=== PATIENT | male | born 1930 | race Caucasian/White ===

== ENCOUNTER 2018-03-22 16:29 | Observation (INO) ==
--- NOTE | 2018-03-22 17:21 | XR ---
EXAM DATE: 03/22/2018 5:15 PM EDT AGE/SEX: 87 years / Male INDICATIONS: . Short of breath and chest pain. CLINICAL DATA: This is the patient's initial encounter. Patient reports that signs and symptoms have been present for 2 weeks and indicates a pain score of 1/10. MEDICAL/SURGICAL HISTORY: Cardiovascular disease. CABG. COMPARISON: No prior exams available for comparison. FINDINGS: PA and lateral views of the chest demonstrate the lungs to be symmetrically aerated without evidence of mass, infiltrate or effusion. The cardiomediastinal contours are unremarkable. Osseous structures are intact. 5 intact sternal wires and clips suggesting CABG. Diffuse spurring of the thoracic spine CONCLUSION: Clips and wires suggests CABG. Aorta is mildly tortuous. Lungs are grossly clear Electronically signed by: Bharath Garcia MD 03/22/2018 5:20 PM EDT
--- NOTE | 2018-03-22 17:57 | ED ---
HPI General Chief complaint: Chest Pain Stated complaint: dr mcginnis Time Seen by Provider: 03/22/18 17:28 History of Present Illness HPI narrative: 87-year-old male with a history of CABG 4, aortic valve replacement with bovine valve and hypertension presents to the emergency department for evaluation of abnormal heart rhythm. The patient states that last week he had his annual physical exam with his primary care doctor in [place] and he had a routine EKG done at that time. States that he was called by his PCP today and told that the EKG shows complete heart block and that he needed to come to the emergency department to have a pacemaker put in. The patient states that he lives half the time here in [place] and half the time in [facility]. He denies any prior history of arrhythmias. He denies any complaints. Denies any chest pain, shortness of breath, lightheadedness, dizziness, fatigue, swelling of the extremities, nausea, vomiting. No other complaints. Related Data Home Medications Medication Instructions Recorded Confirmed aspirin 325 mg PO DAILY 03/22/18 03/22/18 metoprolol tartrate 25 mg PO DAILY 03/22/18 03/22/18 Allergies Allergy/AdvReac Type Severity Reaction Status Date / Time No Known Allergies Allergy Verified 03/22/18 18:55 Review of Systems ROS: all other systems reviewed are negative [facility] Medical History Medical History CAD (coronary artery disease) (Acute) Hypertension (Acute) Surgical History Surgical History H/O aortic valve replacement (Acute) Hx of cardiac cath (Acute) S/P CABG x 4 (Acute) Family History Family History Other Family history normal Social History Social History Substance History: No History of Abuse Second Hand Smoke Exposure: No Smoking Status: Former smoker Tobacco Type: Cigarettes How Often Do You Have a Drink Containing Alcohol: 2 to 4 times a month Recent Travel in [facility] within the Last 8 Weeks: No Recent Out of Country Travel within the Last 8 Weeks: No Immunization History Tetanus Immunization: <5 Years Hx Influenza Vaccine This Season: Yes Exam Narrative Exam Narrative: GENERAL: Well-nourished and well-developed pleasant patient in no acute distress who is nontoxic appearing. SKIN: Warm and dry. HEAD: Normocephalic and atraumatic. EYES: No injection, drainage, or hyphema noted. PERRLA. EOMI. ENT: No nasal drainage noted. Oropharynx is clear. NECK: Supple and the trachea is midline. CARDIOVASCULAR: Regular rate and rhythm. RESPIRATORY: Breath sounds are equal bilaterally with no accessory muscle use, wheezing, rhonchi, or crackles. GASTROINTESTINAL: Abdomen is soft, non-tender, and nondistended. No hepatosplenomegaly. MUSCULOSKELETAL: No obvious deformities, swelling, cyanosis, or ecchymosis is present throughout the upper and lower extremities. Patient has full range of motion without any signs of neurovascular compromise. Distal pulses are 2+ throughout. NEUROLOGICAL: Awake, alert, and oriented. Normal speech and gait. Cranial nerves are grossly intact. Course Initial Documented Vital Signs Temperature 98.7 F 03/22/18 16:52 Pulse Rate 60 03/22/18 16:52 Respiratory Rate 20 03/22/18 16:52 Blood Pressure 197/90 H 03/22/18 16:52 Pulse Oximetry 96 03/22/18 16:52 Last Documented Vital Signs Temperature 97.9 F 03/24/18 10:39 Pulse Rate 58 L 03/24/18 10:39 Respiratory Rate 24 03/24/18 10:39 Blood Pressure 126/75 03/24/18 10:39 Pulse Oximetry 95 03/24/18 10:39 Medical Decision Making NEYMAR Attestation NEYMAR supervised visit: Yes Attestation: I, Dr. Jose, have reviewed the advance practice practitioner's documentation and am in agreement, met with the patient face to face, made the diagnosis, and the medical decision making was done by me. *My assessment and Findings: Patient has a heart block which does not appear to be malignant. Case was reviewed with on-call cardiology, Dr. Weiss. Patient will be admitted for ongoing monitoring with plan for interventional cardiology evaluation tomorrow. Patient is asymptomatic and pharmacologic intervention at this time is necessary despite runs of bradycardia into the 40s. MDM Narrative Medical decision making narrative: 87-year-old male presents to the emergency department for evaluation of abnormal EKG. Patient is afebrile, vital signs are stable. Physical examination is unremarkable. IV access is obtained, labs been drawn and sent. Patient is placed on cardiac telemetry and pulse oximetry monitoring. 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 Patient's heart rate has noted to drop to the low 40s while on the monitor. I called and spoke with the protective signal repairer on-call Dr. Weiss. He reviewed the patient's EKG and states that it is a right bundle branch block with left axis deviation and a first-degree AV block. He recommends d/c metoprolol as this will put him at increased risk for complete heart block. We discussed different options for the patient's care and decided to keep patient in the hospital and he will consult on him in the morning. He would like patient to be NPO at midnight in case they move forward with pacemaker. I spoke with Dr. Ortiz who agrees to accept the patient under her service for observation. Medical Screen Exam Complete: Yes Emergency Medical Condition: Yes Lab Data Result diagrams: 03/22/18 18:00 03/22/18 18:00 Lab Results 03/22/18 03/22/18 03/22/18 Range/Units 18:00 18:00 18:00 WBC 6.4 (4.0-11.0) th/mm3 RBC 4.44 L (4.50-5.90) mil/mm3 Hgb 14.5 (13.0-17.0) gm/dL Hct 42.3 (39.0-51.0) % MCV 95.4 (80.0-100.0) fL MCH 32.8 (27.0-34.0) pg MCHC 34.4 (32.0-36.0) % RDW 12.9 (11.6-17.2) % Plt Count 150 (150-450) th/mm3 MPV 9.5 (7.0-11.0) fL Neut % (Auto) 55.7 (16.0-70.0) % Lymph % (Auto) 33.2 (9.0-44.0) % [place] % (Auto) 6.5 (0.0-8.0) % Eos % (Auto) 4.0 (0.0-4.0) % Baso % (Auto) 0.6 (0.0-2.0) % Neut # (Auto) 3.6 (1.8-7.7) th/mm3 Lymph # (Auto) 2.1 (1.0-4.8) th/mm3 [place] # (Auto) 0.4 (0.0-0.9) th/mm3 Eos # (Auto) 0.3 (0.0-0.4) th/mm3 Baso # (Auto) 0.0 (0.0-0.2) th/mm3 WBC Differential . Differential Comment Auto diff final PT 10.7 (9.8-11.6) sec INR 1.1 Ratio APTT 25.9 (24.3-30.1) sec Sodium 140 (136-145) meq/L Potassium 4.0 (3.5-5.1) meq/L Chloride 104 (98-107) meq/L Carbon Dioxide 27.3 (21.0-32.0) meq/L Anion Gap 9 (5-15) meq/L BUN 17 (7-18) mg/dL Creatinine 1.06 (0.60-1.30) mg/dL Estimated GFR 66 L (>89) mL/min Random Glucose 111 H (74-106) mg/dL Calcium 9.2 (8.5-10.1) mg/dL Total Bilirubin 0.7 (0.2-1.0) mg/dL AST 13 L (15-37) U/L ALT 17 (12-78) U/L Alkaline Phosphatase 72 (45-117) U/L Troponin I 0.03 (0.02-0.05) ng/mL Total Protein 7.4 (6.4-8.2) g/dL Albumin 3.9 (3.4-5.0) g/dL Imaging Data Radiologist's impression: Chest X-Ray 03/22/18 00:00 CONCLUSION: Clips and wires suggests CABG. Aorta is mildly tortuous. Lungs are grossly clear Discharge Plan Discharge Disposition Patient Disposition: 30 Still Patient Discharge Condition Condition: Stable Discharge Details Diagnosis: Trifascicular block Physicians Team ED Provider: Kyle Jose ED Midlevel Provider: Jenny Arriaza Attending Provider: Ifeoma Fowler Other Providers: Celestino Weiss Status ED Status: Left Department Discharge Information Discharge Date/Time: 03/22/18 21:22
[2018-03-22 18:30] LABS: Baso % (Auto) 0.6 % (0.0-2.0); Eos # (Auto) 0.3 th/mm3 (0.0-0.4); Hematocrit 42.3 % (39.0-51.0); Hemoglobin 14.5 gm/dL (13.0-17.0); Lymph # (Auto) 2.1 th/mm3 (1.0-4.8); Lymph % (Auto) 33.2 % (9.0-44.0); Mean Corpuscular HGB Conc 34.4 % (32.0-36.0); Mean Corpuscular Hemoglobin 32.8 pg (27.0-34.0); Mean Corpuscular Volume 95.4 fL (80.0-100.0); Mean Platelet Volume 9.5 fL (7.0-11.0); Mono # (Auto) 0.4 th/mm3 (0.0-0.9); Mono % (Auto) 6.5 % (0.0-8.0); Neut # (Auto) 3.6 th/mm3 (1.8-7.7); Neut % (Auto) 55.7 % (16.0-70.0); Platelet Count 150 th/mm3 (150-450); Red Blood Count 4.44 mil/mm3 (4.50-5.90); Red Cell Distribution Width 12.9 % (11.6-17.2); White Blood Count 6.4 th/mm3 (4.0-11.0)
[2018-03-22 18:33] LABS: Alanine Aminotransferase 17 U/L (12-78); Albumin 3.9 g/dL (3.4-5.0); Anion Gap 9 meq/L (5-15); Aspartate Aminotransferase 13 U/L (15-37); Blood Urea Nitrogen 17 mg/dL (7-18); Calcium 9.2 mg/dL (8.5-10.1); Carbon Dioxide 27.3 meq/L (21.0-32.0); Chloride 104 meq/L (98-107); Glomerular Filtration Rate 66 mL/min (>89); Glucose,Random 111 mg/dL (74-106); Sodium 140 meq/L (136-145)
[2018-03-22 18:37] LABS: Alkaline Phosphatase 72 U/L (45-117); Total Protein 7.4 g/dL (6.4-8.2); Troponin I 0.03 ng/mL (0.02-0.05)
[2018-03-22 18:40] LABS: Activated Partial Thrombo Time 25.9 sec (24.3-30.1); INR 1.1 Ratio; Prothrombin Time 10.7 sec (9.8-11.6)
[2018-03-22] MEDS ORDERED: Acetaminophen 325 MG Tablet PO PRN (20:29)
--- NOTE | 2018-03-22 21:20 | P.HP ---
History of Present Illness Service: [facility] Primary Care Physician: UNKNOWN History of Present Illness: With past medical history significant for hypertension and coronary artery disease presents the emergency department for the evaluation of an abnormal heart rhythm. The patient reports that last week he had his annual physical exam with his primary care provider in [place] and he had a routine EKG done at that time he states the PCP office called him today and dated that the EKG showed complete heart block and he needed to come to the emergency department for further evaluation. EKG done in the emergency department showed a bifascicular block without ST segment elevation or depression. The patient denies any chest pain or shortness of breath. He states he "feels fine." No abdominal pain. No nausea/vomiting/diarrhea. No lateralizing signs/symptoms. No fever/chills. Review of Systems All other systems reviewed negative except as stated in HPI [facility] - History History Provided By: Patient, Family Member - Medical History Medical History: Medical History (Last Updated 03/22/18 @ 21:15 by Sailaja Ortiz MD) CAD (coronary artery disease) Hypertension - Surgical History Surgical History: Surgical History (Last Updated 03/22/18 @ 17:40 by Marilu Cunningham) H/O aortic valve replacement Hx of cardiac cath S/P CABG x 4 - Family History Family History: Family History (Last Updated 03/22/18 @ 21:15 by Sailaja Ortiz MD) Other Family history normal - Tobacco History Second Hand Smoke Exposure: No Tobacco Use In Past 30 Days: No Smoking Status: Former smoker - Alcohol History How Often Do You Have a Drink Containing Alcohol: 2 to 3 times a week - Substance Use History Substance History: No History of Abuse - Travel History Recent Travel in the [facility] Within the Last 8 Weeks: No Recent Travel Out of the Country Within the Last 8 Weeks: No - Immunization History Tetanus Immunization: <5 Years Hx Influenza Vaccine This Season: Yes Medications and Allergies Active Medications: Active Medications Acetaminophen (Tylenol) 650 mg PO Q4H PRN PRN Reason: Temp > 100.4 Ondansetron HCl (Zofran Inj) 4 mg IV.PUSH Q6H PRN PRN Reason: NAUSEA OR VOMITING Sodium Chloride (Ns Flush) 2 ml IV.FLUSH UNSCH PRN PRN Reason: FLUSH AFTER USING IV ACCESS Allergies Allergy/AdvReac Type Severity Reaction Status Date / Time No Known Allergies Allergy Verified 03/22/18 18:55 Home Medications Medication Instructions Recorded Confirmed Type aspirin 325 mg PO DAILY 03/22/18 03/22/18 History metoprolol tartrate 25 mg PO DAILY 03/22/18 03/22/18 History Exam Vital signs: Vital Signs 03/22/18 16:52 03/22/18 17:30 03/22/18 17:50 Temperature 98.7 F Pulse Rate 60 58 L Respiratory Rate 20 21 Blood Pressure 197/90 H 175/83 H Pulse Oximetry 96 98 96 03/22/18 18:00 Temperature Pulse Rate Respiratory Rate Blood Pressure Pulse Oximetry 96 Intake & Output 03/22/18 03/22/18 03/23/18 06:59 18:59 06:59 Weight 84.368 kg Narrative: Gen.: No acute distress Head: Normocephalic. Atraumatic. EENT: Pupils equal round and reactive to light. Nose without drainage. Airway intact. Throat without injection. Cardiovascular: Regular rate and rhythm. 3/6 murmur Respiratory: Lungs clear to auscultation bilaterally. No wheezes or rhonchi. Abdomen: Soft, nontender, nondistended. No peritoneal signs. Musculoskeletal: No gross deformities. No edema. Skin: No obvious rashes or erythema. Neuro: Sensory and motor grossly intact. Cranial nerves II through XII grossly intact. Results - Labs CBC & Chem 7: 03/22/18 18:00 03/22/18 18:00 Labs: Laboratory Results - last 24 hr 03/22/18 03/22/18 03/22/18 18:00 18:00 18:00 WBC 6.4 RBC 4.44 L Hgb 14.5 Hct 42.3 MCV 95.4 MCH 32.8 MCHC 34.4 RDW 12.9 Plt Count 150 MPV 9.5 Neut % (Auto) 55.7 Lymph % (Auto) 33.2 [place] % (Auto) 6.5 Eos % (Auto) 4.0 Baso % (Auto) 0.6 Neut # (Auto) 3.6 Lymph # (Auto) 2.1 [place] # (Auto) 0.4 Eos # (Auto) 0.3 Baso # (Auto) 0.0 WBC Differential . Differential Comment Auto diff final PT 10.7 INR 1.1 APTT 25.9 Sodium 140 Potassium 4.0 Chloride 104 Carbon Dioxide 27.3 Anion Gap 9 BUN 17 Creatinine 1.06 Estimated GFR 66 L Random Glucose 111 H Calcium 9.2 Total Bilirubin 0.7 AST 13 L ALT 17 Alkaline Phosphatase 72 Troponin I 0.03 Total Protein 7.4 Albumin 3.9 - Imaging Impressions Chest X-Ray 03/22/18 00:00 CONCLUSION: Clips and wires suggests CABG. Aorta is mildly tortuous. Lungs are grossly clear Caprini VTE Risk Assessment Caprini VTE Risk Assessment: Moderate/High Risk (score >= 2) Caprini Risk Assessment Model: Point Value = 1 Point Value = 2 Point Value = 3 Point Value = 5 Age 41-60 Minor surgery BMI > 25 kg/m2 Swollen legs Varicose veins or History of unexplained or recurrent spontaneous Oral contraceptives or hormone replacement Sepsis (< 1 month) Serious lung disease, including pneumonia (< 1 month) Abnormal pulmonary function Acute myocardial infarction Congestive heart failure (< 1 month) History of inflammatory bowel disease Medical patient at bed rest Age 61-74 Arthroscopic surgery Major open surgery (> 45 min) Laparoscopic surgery (> 45 min) Malignancy Confined to bed (> 72 hours) Immobilizing plaster cast Central venous access Age >= 75 History of VTE Family history of VTE Factor V Leiden Prothrombin [id number] Lupus anticoagulant Anticardiolipin antibodies Elevated serum homocysteine Heparin-induced thrombocytopenia Other congenital or acquired thrombophilia Stroke (< 1 month) Elective arthroplasty Hip, pelvis, or leg fracture Acute spinal cord injury (< 1 month) Prophylaxis Regimen: Total Risk Factor Score Risk Level Prophylaxis Regimen 0-1 Low Early ambulation 2 Moderate Order ONE of the following: *Sequential Compression Device (SCD) *Heparin 5000 units SQ BID 3-4 Higher Order ONE of the following medications: *Heparin 5000 units SQ TID *Enoxaparin/Lovenox 40 mg SQ daily (WT < 150 kg, CrCl > 30 mL/min) *Enoxaparin/Lovenox 30 mg SQ daily (WT < 150 kg, CrCl > 10-29 mL/min) *Enoxaparin/Lovenox 30 mg SQ BID (WT < 150 kg, CrCl > 30 mL/min) AND/OR *Sequential Compression Device (SCD) 5 or more Highest Order ONE of the following medications: *Heparin 5000 units SQ TID (Preferred with Epidurals) *Enoxaparin/Lovenox 40 mg SQ daily (WT < 150 kg, CrCl > 30 mL/min) *Enoxaparin/Lovenox 30 mg SQ daily (WT < 150 kg, CrCl > 10-29 mL/min) *Enoxaparin/Lovenox 30 mg SQ BID (WT < 150 kg, CrCl > 30 mL/min) AND *Sequential Compression Device (SCD) Assessment and Plan - Plan Assessment/plan: 1. Abnormal EKG Patient's PCP reports that he had complete heart block on EKG, records requested EKG done in the emergency department significant for bifascicular block, personally reviewed Patient will be evaluated for pacemaker placement Cardiology consulted, appreciate recommendations 2. CAD Continue aspirin 3. Hypertension Holding home metoprolol for bradycardia and heart block FEN N.p.o. Electrolytes: Monitor and replete as needed NS at 84 cc/hour Heparin
[2018-03-22] MEDS: Heparin - SQ 10,000 UNITS/ML Vial SQ SCH (22:44)
[2018-03-22] MEDS: Sod Chloride 0.9% Inj 1,000 ML IV.CONT SCH (22:44)
[2018-03-23] MEDS: Heparin - SQ 10,000 UNITS/ML Vial SQ SCH ×2 (08:11→22:13)
[2018-03-23] MEDS: Aspirin 325 MG Tablet PO SCH (08:11)
--- NOTE | 2018-03-23 09:10 | P.CONCA ---
History of Present Illness Service: [facility] cardi[facility] Consult date: 03/23/18 Requesting Physician: Sailaja Ortiz Reason for Consult: heart block Primary Care Provider: UNKNOWN Chief Complaint: sent by PCP for heart block on ECG History of Present Illness: There is a very pleasant 87-year-old gentleman with a history of CAD status post four-vessel CABG and bioprosthetic SAVR who is in his usual state of health and presented to his PCP last week for an annual physical examination. An EKG was obtained at that time. Apparently the patient was discharged and his PCP yesterday reviewed his EKG and was concerned that it displayed to complete heart block. Patient was contacted via the telephone and recommended to proceed directly to the ER. The patient is asymptomatic and feels to be in his usual state of health. He denies any chest pain, palpitations, lightheadedness, dizziness, syncope, PND, orthopnea, lower extremity edema or exercise capacity limitations. He is a fairly active 87-year-old gentleman and continues to engage in golf and activities around the house. He did report some intermittent lightheadedness but he cannot recall if it was positional or not as it has been sometime since he is experienced this. In the ER, he was noted to have an EKG revealing trifascicular block (RBBB, LAFB , first-degree AVB), and on telemetry he was noted to have intermittent Mobitz type II second-degree heart block. He is asymptomatic. Laboratories and chest x-ray were unremarkable. Review of Systems All other systems reviewed negative except as stated in HPI [facility] - History History Provided By: Patient - Medical History Medical History: Medical History (Last Updated 03/22/18 @ 21:15 by Sailaja Ortiz MD) CAD (coronary artery disease) Hypertension - Surgical History Surgical History: Surgical History (Last Updated 03/22/18 @ 17:40 by Marilu Cunningham) H/O aortic valve replacement Hx of cardiac cath S/P CABG x 4 - Family History Family History: Family History (Last Updated 03/22/18 @ 21:15 by Sailaja Ortiz MD) Other Family history normal - Tobacco History Second Hand Smoke Exposure: No Tobacco Use In Past 30 Days: No Smoking Status: Former smoker Tobacco Type: Cigarettes - Alcohol History How Often Do You Have a Drink Containing Alcohol: 2 to 4 times a month - Substance Use History Substance History: No History of Abuse - Travel History Recent Travel in the [place] Within the Last 8 Weeks: No Recent Travel Out of the Country Within the Last 8 Weeks: No - Immunization History Tetanus Immunization: <5 Years Hx Influenza Vaccine This Season: Yes Medications and Allergies Active Medications: Active Medications Acetaminophen (Tylenol) 650 mg PO Q4H PRN PRN Reason: Temp > 100.4 Aspirin (Aspirin) 325 mg PO DAILY [facility] Last Admin: 03/23/18 08:11 Dose: Not Given Chlorhexidine Gluconate (Chlorhexidine 2% Cloth) 3 pack TOPICAL PACKER DRIED BEEF [facility] Stop: 03/26/18 09:01 Heparin Sodium (Porcine) (Heparin Inj) 5,000 units SQ Q12HR [facility] Last Admin: 03/23/18 08:11 Dose: Not Given Sodium Chloride (Ns Inj) 1,000 mls @ 84 mls/hr IV.CONT .[id number] [facility] Last Infusion: 03/23/18 06:00 Dose: 84 mls/hr Vancomycin HCl 1,000 mg/ (Sodium Chloride) 250 mls @ 250 mls/hr IV.SIG PACKER DRIED BEEF [facility] Stop: 03/26/18 09:02 Mupirocin (Bactroban 2% Nasal Oint) 1 applicatio EACH NARE PACKER DRIED BEEF [facility] Stop: 03/26/18 09:01 Ondansetron HCl (Zofran Inj) 4 mg IV.PUSH Q6H PRN PRN Reason: NAUSEA OR VOMITING Povidone Iodine (Betadine 5% Antisepsis Kit) 1 applicatio EACH NARE PACKER DRIED BEEF [facility] Stop: 03/26/18 09:01 Sodium Chloride (Ns Flush) 2 ml IV.FLUSH UNSCH PRN PRN Reason: FLUSH AFTER USING IV ACCESS Last Admin: 03/22/18 22:43 Dose: 2 ml Allergies Allergy/AdvReac Type Severity Reaction Status Date / Time No Known Allergies Allergy Verified 03/22/18 18:55 Home Medications Medication Instructions Recorded Confirmed Type aspirin 325 mg PO DAILY 03/22/18 03/22/18 History metoprolol tartrate 25 mg PO DAILY 03/22/18 03/22/18 History Exam Vital signs: Vital Signs 03/22/18 16:52 03/22/18 17:30 03/22/18 17:50 Temperature 98.7 F Pulse Rate 60 58 L Respiratory Rate 20 21 Blood Pressure 197/90 H 175/83 H Pulse Oximetry 96 98 96 03/22/18 18:00 03/22/18 21:43 03/22/18 22:50 Temperature 97.6 F Pulse Rate 61 Respiratory Rate 20 Blood Pressure 180/87 H Pulse Oximetry 96 95 96 03/22/18 23:21 03/23/18 04:00 03/23/18 07:42 Temperature 98.5 F 97.5 F L 97.6 F Pulse Rate 56 L 51 L 61 Respiratory Rate 18 16 12 Blood Pressure 146/71 H 163/81 H 164/92 H Pulse Oximetry 97 91 L 93 L 03/23/18 07:54 Temperature Pulse Rate Respiratory Rate Blood Pressure Pulse Oximetry 96 Intake & Output 03/22/18 03/23/18 03/23/18 18:59 06:59 18:59 Intake Total 1044 / 1044 Output Total 600 / 600 Balance 444 / 444 Weight 84.368 kg 85.5 kg Intake: IV 684 / 684 NS Inj 1,000 ML @ 84 mls/hr IV. 684 / 684 CONT .[id number] [facility] Rx#:[id number] Oral 360 / 360 Output: Urine 600 / 600 Other: Date of Last Bowel Movement 03/22/18 # Bowel Movements 0 Weight On Admission 85.5 kg Narrative: GENERAL: Comfortable appearing elderly gentleman in no acute distress SKIN: Warm and dry. HEAD: Atraumatic. Normocephalic. EYES: Pupils equal and round. No scleral icterus. No injection or drainage. ENT: No nasal bleeding or discharge. Mucous membranes pink and moist. NECK: Trachea midline. No JVD. CARDIOVASCULAR: Regular rate and rhythm. 2/6 systolic ejection murmur appreciated in the right upper sternal border RESPIRATORY: No accessory muscle use. Clear to auscultation. Breath sounds equal bilaterally. GASTROINTESTINAL: Abdomen soft, non-tender, nondistended. MUSCULOSKELETAL: Extremities without clubbing, cyanosis, or edema. No obvious deformities. NEUROLOGICAL: Awake and alert. No obvious cranial nerve deficits. Normal speech. PSYCHIATRIC: Appropriate mood and affect; insight and judgment normal. Results 03/22/18 18:00 03/22/18 18:00 Cardiac Enzymes 03/22/18 Range/Units 18:00 AST 13 L (15-37) U/L Troponin I 0.03 (0.02-0.05) ng/mL Coagulation 03/22/18 Range/Units 18:00 PT 10.7 (9.8-11.6) sec APTT 25.9 (24.3-30.1) sec CBC 03/22/18 Range/Units 18:00 WBC 6.4 (4.0-11.0) th/mm3 RBC 4.44 L (4.50-5.90) mil/mm3 Hgb 14.5 (13.0-17.0) gm/dL Hct 42.3 (39.0-51.0) % Plt Count 150 (150-450) th/mm3 Neut # (Auto) 3.6 (1.8-7.7) th/mm3 Lymph # (Auto) 2.1 (1.0-4.8) th/mm3 [place] # (Auto) 0.4 (0.0-0.9) th/mm3 Eos # (Auto) 0.3 (0.0-0.4) th/mm3 Baso # (Auto) 0.0 (0.0-0.2) th/mm3 Comprehensive Metabolic Panel 03/22/18 Range/Units 18:00 Sodium 140 (136-145) meq/L Potassium 4.0 (3.5-5.1) meq/L Chloride 104 (98-107) meq/L Carbon Dioxide 27.3 (21.0-32.0) meq/L BUN 17 (7-18) mg/dL Creatinine 1.06 (0.60-1.30) mg/dL Calcium 9.2 (8.5-10.1) mg/dL AST 13 L (15-37) U/L ALT 17 (12-78) U/L Alkaline Phosphatase 72 (45-117) U/L Total Protein 7.4 (6.4-8.2) g/dL Albumin 3.9 (3.4-5.0) g/dL Intake and Output 03/22/18 03/23/18 03/23/18 22:59 06:59 14:59 Intake Total 1044 / 1044 Output Total 600 / 600 Balance 444 / 444 Intake: IV 684 / 684 NS Inj 1,000 ML @ 84 mls/hr IV. 684 / 684 CONT .[id number] [facility] Rx#:[id number] Oral 360 / 360 Output: Urine 600 / 600 Other: Date of Last Bowel Movement 03/22/18 03/22/18 # Bowel Movements 0 Weight 85.5 kg Weight On Admission 85.5 kg Assessment and Plan - Plan Assessment: -Asymptomatic patient with high-grade AVB, second-degree heart block with underlying trifascicular block on EKG. Patient wishes to proceed with permanent pacemaker placement following discussion of the risks, benefits and alternatives of the procedure. Will obtain a transthoracic echocardiogram to evaluate LV systolic function for type of device implant. Plan for PPM insertion today pending anesthesia availability.
[2018-03-23] MEDS ORDERED: Mupirocin 2% Nasal Oint Topical Syringe EACH NARE SCH (09:15)
[2018-03-23] MEDS ORDERED: Vancomycin Inj 1,000 MG in Sodium Chlor 0.9% Inj 250 ML IV.SIG SCH (10:00)
--- NOTE | 2018-03-23 10:51 | ECHRPT ---
Indication: HEART BLOCK CONCLUSIONS Severely dilated left ventricle. Mild concentric left ventricular hypertrophy. The left ventricular systolic function is severely reduced with an estimated ejection fraction less than 20%. The right ventricular systoilc function is moderately decreased. The left atrial size is mildly dilated. Trace mitral valve regurgitation. Bioprosthetic aortic prosthesis with low-flow, low-gradient severe . Aortic valve mean gradient is 34 mmHg. Aortic valve area is 0.52 cm. Trace aortic valve regurgitation. There is trace tricuspid valve regurgitation. There is estimated [id number] pulmonary hypertension present (65mmHg). Mild pulmonary valve regurgitation. BP: / HR: Rhythm: MEASUREMENTS (Male / Female) Normal Values Technical Quality: 2D ECHO LV Diastolic Diameter PLAX 6.5 cm 4.2 - 5.9 / 3.9 - 5.3 cm LV Systolic Diameter PLAX 6.2 cm IVS Diastolic Thickness 1.6 cm 0.6 - 1.0 / 0.6 - 0.9 cm LVPW Diastolic Thickness 0.9 cm 0.6 - 1.0 / 0.6 - 0.9 cm LV Relative Wall Thickness 0.4 RV Internal Dim ED PLAX 2.8 cm LVOT Diameter 2.0 cm LA Systolic Diameter LX 4.9 cm 3.0 - 4.0 / 2.7 - 3.8 cm DOPPLER AV Peak Velocity 360.4 cm/s AV Peak Gradient 52.0 mmHg AV Mean Gradient 30.6 mmHg AV Velocity Time Integral 86.4 cm LVOT Peak Velocity 54.9 cm/s LVOT Peak Gradient 1.2 mmHg LVOT Velocity Time Integral 14.2 cm AV Area Cont Eq vti 0.5 cm AV Area Cont Eq pk 0.5 cm Mitral E Point Velocity 73.7 cm/s Mitral A Point Velocity 116.0 cm/s Mitral E to A Ratio 0.6 TR Peak Velocity 372.0 cm/s TR Peak Gradient 55.4 mmHg Right Atrial Pressure 10.0 mmHg Pulmonary Artery Systolic Pressu 65.4 mmHg Right Ventricular Systolic Press 65.4 mmHg FINDINGS LEFT VENTRICLE Severely dilated left ventricle. Mild concentric left ventricular hypertrophy. The left ventricular systolic function is severely reduced with an estimated ejection fraction less than 20%. RIGHT VENTRICLE The right ventricular systoilc function is moderately decreased. LEFT ATRIUM The left atrial size is mildly dilated. RIGHT ATRIUM The right atrial size is normal. ATRIAL SEPTUM Normal atrial septal thickness without atrial level shunting by limited color doppler interrogation. AORTA The aortic root and proximal ascending aorta are normal in size on limited imaging. MITRAL VALVE Mitral annular calcification is present. Trace mitral valve regurgitation. AORTIC VALVE Aortic prosthesis Trace aortic valve regurgitation. Low-flow, low-gradient severe aortic stenosis. Aortic valve mean gradient is 34 mmHg. Aortic valve area is 0.52 cm. TRICUSPID VALVE There is trace tricuspid valve regurgitation. There is estimated [id number] pulmonary hypertension present (65mmHg). PULMONARY VALVE Mild pulmonary valve regurgitation. VESSELS The inferior vena cava is normal in size. PERICARDIUM No pericardial effusion. Celestino Weiss (Electronically Signed) Final Date:23 March 2018 10:51
[2018-03-23] MEDS: Sod Chloride 0.9% Inj 1,000 ML IV.CONT SCH ×2 (11:07→23:12)
--- NOTE | 2018-03-23 11:24 | P.PN ---
Subjective Interval history: Nursing denies any deterioration since last night. Patient himself has no complaints. He is a symptomatically no chest pain. Physical Exam Vital signs: Vital Signs 03/22/18 16:52 03/22/18 17:30 03/22/18 17:50 Temperature 98.7 F Pulse Rate 60 58 L Respiratory Rate 20 21 Blood Pressure 197/90 H 175/83 H Pulse Oximetry 96 98 96 03/22/18 18:00 03/22/18 21:43 03/22/18 22:50 Temperature 97.6 F Pulse Rate 61 Respiratory Rate 20 Blood Pressure 180/87 H Pulse Oximetry 96 95 96 03/22/18 23:21 03/23/18 04:00 03/23/18 07:42 Temperature 98.5 F 97.5 F L 97.6 F Pulse Rate 56 L 51 L 61 Respiratory Rate 18 16 12 Blood Pressure 146/71 H 163/81 H 164/92 H Pulse Oximetry 97 91 L 93 L 03/23/18 07:54 Temperature Pulse Rate Respiratory Rate Blood Pressure Pulse Oximetry 96 Intake & Output 03/22/18 03/23/18 03/23/18 18:59 06:59 18:59 Intake Total 1044 / 1044 400 / 400 Output Total 600 / 600 Balance 444 / 444 400 / 400 Weight 84.368 kg 85.5 kg Intake: IV 684 / 684 400 / 400 NS Inj 1,000 ML @ 84 mls/hr IV. 684 / 684 400 / 400 CONT .[id number] [facility] Rx#:[id number] Oral 360 / 360 Output: Urine 600 / 600 Other: Date of Last Bowel Movement 03/22/18 03/22/18 # Bowel Movements 0 Weight On Admission 85.5 kg Narrative: 5/6 ejection murmur Slightly bradycardic otherwise regular rhythm Clear lungs bilaterally, unlabored breathing Results - Labs CBC & Chem 7: 03/22/18 18:00 03/22/18 18:00 Laboratory Results - last 24 hr 03/22/18 03/22/18 03/22/18 18:00 18:00 18:00 WBC 6.4 RBC 4.44 L Hgb 14.5 Hct 42.3 MCV 95.4 MCH 32.8 MCHC 34.4 RDW 12.9 Plt Count 150 MPV 9.5 Neut % (Auto) 55.7 Lymph % (Auto) 33.2 Piatt % (Auto) 6.5 Eos % (Auto) 4.0 Baso % (Auto) 0.6 Neut # (Auto) 3.6 Lymph # (Auto) 2.1 Piatt # (Auto) 0.4 Eos # (Auto) 0.3 Baso # (Auto) 0.0 WBC Differential . Differential Comment Auto diff final PT 10.7 INR 1.1 APTT 25.9 Sodium 140 Potassium 4.0 Chloride 104 Carbon Dioxide 27.3 Anion Gap 9 BUN 17 Creatinine 1.06 Estimated GFR 66 L Random Glucose 111 H Calcium 9.2 Total Bilirubin 0.7 AST 13 L ALT 17 Alkaline Phosphatase 72 Troponin I 0.03 Total Protein 7.4 Albumin 3.9 - Imaging Impressions Chest X-Ray 03/22/18 00:00 CONCLUSION: Clips and wires suggests CABG. Aorta is mildly tortuous. Lungs are grossly clear Assessment and Plan - Plan Assessment/plan: 1. 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 CAD Continue aspirin 3. Hypertension Holding home metoprolol for bradycardia and heart block
--- NOTE | 2018-03-23 14:16 | ECG ---
Date Performed: 03/22/2018 Time Performed: 17:03:07 PTAGE: 87 years EKG: Sinus rhythm WITH 1ST DEGREE AV BLOCK AND VENTRICULAR PACED RHYTHM PROLONGED CORRECTED QT INTERVAL RIGHT BUNDLE B RANCH BLOCK LEFT ANTERIOR FASCICULAR BLOCK POSSIBLE LEFT VENTRICULAR HYPERTROPHY ABNORMAL ECG NO PREVIOUS TRACING DOCTOR: Alvarez Cullen Interpretating Date/Time 03/23/2018 14:15:46
[2018-03-23] MEDS: Chlorhexidine Gluconate 2% 1 Pack (2 Cloths) TOPICAL SCH (14:40)
--- NOTE | 2018-03-23 19:39 | MB ---
cc: Aaron Kunz MD DATE: 03/23/2018 REASON FOR CONSULTATION: AV block, congestive heart failure. HISTORY OF PRESENT ILLNESS: Mr. Gonzalez is an 87-year-old gentleman with coronary artery disease, coronary artery bypass grafting, high blood pressure, who was admitted due to AV block. The patient was scheduled for permanent pacemaker insertion. The case was canceled. I was consulted for evaluation and management. The chart was reviewed. The patient was evaluated. ALLERGIES: NONE. SOCIAL HISTORY: Negative for smoking and drinking. FAMILY HISTORY: Noncontributory to his current medical condition. MEDICATIONS: He is on heparin, vancomycin, Zofran. At home, he was on only 25 mg of metoprolol and aspirin. REVIEW OF SYSTEMS: The patient refers no chest pain, no chest discomfort. Some shortness of breath on minimal activity and near syncope, but no vomiting, no fever. PHYSICAL EXAMINATION: GENERAL: Alert, fully oriented, in bed. VITAL SIGNS: Blood pressure 152/87, pulse 84, respiratory rate 18. LUNGS: Ventilated. CARDIOVASCULAR: S1, S2, irregular. ABDOMEN: Obese. No mass, no bruits. EXTREMITIES: No edema. DIAGNOSTIC DATA: Electrocardiogram shows AV dissociation, right bundle branch block, junctional rhythm, diffuse ST changes. QRS around 180 milliseconds. LABORATORY DATA: Hemoglobin 14.5, white blood cells 6.4. INR 1.7. Potassium 4.0, creatinine 1.06. ASSESSMENT AND RECOMMENDATIONS: Mr. Gonzalez has shortness of breath. He has congestive heart failure, coronary artery disease, cardiomyopathy. He was admitted since yesterday. Currently, in complete atrioventricular dissociation in the monitor. Ejection fraction 20%. The patient recently evaluated by Dr. Weiss. This gentleman is going to need pacing support. Because it is a wide complex tachyarrhythmia and junctional rhythm currently, he is going to need ventricular pacing. He has heart failure and ejection fraction is 20%. A full device will be inserted in the short term and will need a biventricular pacer defibrillator for resynchronization therapy and sudden prevention. Also, tachyarrhythmia needs to be evaluated. Electrophysiology study and biventricular pacer defibrillator discussed extensively with him and his family. The risks, the nature and the benefits of the procedure were clearly stated to them, which included pneumothorax, cardiac perforation, stroke and even . The patient understood and agreed to proceed. Procedure will be scheduled. I was just consulted may be less than 2 hours ago to evaluate Mr. Gonzalez. The patient was evaluated. Apparently at the last minute, anesthesiology canceled the procedure because of unavailability. I did try to find an opportunity to contact my practice to let them know what was going on about the lack of anesthesia. At the end of the day, we decided to reschedule the case for tomorrow. If necessary, the patient can be externally paced or a temporary pacer will be inserted today. Family informed. The patient will be kept on n.p.o. after midnight with procedure in the morning. MD ROBBIN Bello/leeanne , 03:40 PM , 03:52 PM
--- NOTE | 2018-03-24 07:20 | P.PN ---
Subjective Interval history: Pt seen and examined. Vitals reviewed, stable bradycardia with HR 50-60s. BPs elevated with systolic in the 150s. Pt denies any acute symptoms. Reports he rested well overnight. Denies chest pain or palpitations. Endorses some chronic exertional dyspnea and decreased exercise tolerance but no worsening shortness of breath and none at rest. Denies abdominal pain, N/V. He is currently NPO for pacemaker/AICD placement today. He hopes to be able to go home tomorrow. The patient recently moved to [place] from [place] and he doesn't have a PCP or residential collections in the area yet. Physical Exam Vital signs: Vital Signs 03/23/18 07:42 03/23/18 07:54 03/23/18 11:49 Temperature 97.6 F 97.7 F Pulse Rate 61 64 Respiratory Rate 12 16 Blood Pressure 164/92 H 152/87 H Pulse Oximetry 93 L 96 90 L 03/23/18 16:00 03/23/18 19:42 03/23/18 19:46 Temperature 98.1 F 98.5 F Pulse Rate 53 L 68 Respiratory Rate 18 20 Blood Pressure 155/69 H 133/76 Pulse Oximetry 93 L 94 L 94 L 03/23/18 20:00 03/23/18 22:30 03/23/18 23:00 Temperature Pulse Rate 49 L 60 48 L Respiratory Rate Blood Pressure Pulse Oximetry 03/23/18 23:20 03/24/18 00:00 03/24/18 01:10 Temperature 98 F Pulse Rate 59 L 50 L 52 L Respiratory Rate 22 Blood Pressure 145/81 H Pulse Oximetry 96 03/24/18 02:00 03/24/18 02:55 03/24/18 03:00 Temperature 97.8 F Pulse Rate 56 L 62 64 Respiratory Rate 22 Blood Pressure 151/84 H Pulse Oximetry 96 03/24/18 04:00 03/24/18 05:00 03/24/18 05:42 Temperature Pulse Rate 50 L 61 56 L Respiratory Rate Blood Pressure Pulse Oximetry Intake & Output 03/23/18 03/24/18 03/24/18 18:59 06:59 18:59 Intake Total 400 / 400 480 / 480 Output Total 200 / 200 550 / 550 Balance 200 / 200 -70 / -70 Weight 84 kg Intake: IV 400 / 400 0 / 0 NS Inj 1,000 ML @ 84 mls/hr IV. 400 / 400 0 / 0 CONT .[id number] [facility] Rx#:[id number] Oral 480 / 480 Output: Urine 200 / 200 550 / 550 Other: # Voids 2 Date of Last Bowel Movement 03/22/18 03/23/18 Narrative: GENERAL: WN, WD elderly male resting in bed in NAD. SKIN: Warm and dry. HEENT: AT/NC. Pupils equal and round. MMM. NECK: Supple no tender LAD or JVD. HEART: RRR with harsh 3-4/6 OZZY. LUNGS: CTAB without wheezes or crackles. ABDOMEN: +BS, soft, NT, ND. EXTREMITIES: No LE edema. NEURO: Awake and alert. PSYCH: Appropriate mood and affect. 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 In the ER, he was noted to have an EKG revealing trifascicular block (RBBB, LAFB, first- degree AVB), and on telemetry he was noted to have intermittent Mobitz type II second-degree heart block. 1. 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 CHF - Echo demonstrates EF of 20%, likely ischemic cardiomyopathy - Start Lisinopril and spironolactone - Carvedilol initiated by cardiology - Check BMP tomorrow to monitor potassium and renal function since starting above meds - Will also need a BMP a week out 3. CAD - Continue ASA - Start Lisinopril - Start atorvastatin 4. HTN - BPs elevated - Starting Lisinopril and carvedilol - Continue to monitor and adjust meds as needed DVT prophylaxis: Heparin but for now holding for procedure Code Status: FULL Discussed Condition With: The patient Discharge Planning: Anticipate D/C tomorrow pending no complications during PPM/AICD placement and overnight
[2018-03-24] MEDS: Lisinopril 10 MG Tablet PO SCH (08:45)
[2018-03-24] MEDS: Spironolactone 25 MG Tablet PO SCH (08:45)
[2018-03-24] MEDS: Heparin - SQ 10,000 UNITS/ML Vial SQ SCH ×2 (08:46→20:24)
[2018-03-24] MEDS: Aspirin 325 MG Tablet PO SCH (08:46)
--- NOTE | 2018-03-24 08:48 | P.PNCA ---
Subjective Interval history: rested comfortably overnight. No chest pain, sob or palpitations. Currently npo for AICD/PPM procedure today. Physical Exam Vital signs: Vital Signs 03/23/18 11:49 03/23/18 16:00 03/23/18 19:42 Temperature 97.7 F 98.1 F 98.5 F Pulse Rate 64 53 L 68 Respiratory Rate 16 18 20 Blood Pressure 152/87 H 155/69 H 133/76 Pulse Oximetry 90 L 93 L 94 L 03/23/18 19:46 03/23/18 20:00 03/23/18 22:30 Temperature Pulse Rate 49 L 60 Respiratory Rate Blood Pressure Pulse Oximetry 94 L 03/23/18 23:00 03/23/18 23:20 03/24/18 00:00 Temperature 98 F Pulse Rate 48 L 59 L 50 L Respiratory Rate 22 Blood Pressure 145/81 H Pulse Oximetry 96 03/24/18 01:10 03/24/18 02:00 03/24/18 02:55 Temperature 97.8 F Pulse Rate 52 L 56 L 62 Respiratory Rate 22 Blood Pressure 151/84 H Pulse Oximetry 96 03/24/18 03:00 03/24/18 04:00 03/24/18 05:00 Temperature Pulse Rate 64 50 L 61 Respiratory Rate Blood Pressure Pulse Oximetry 03/24/18 05:42 03/24/18 07:20 Temperature 97.8 F Pulse Rate 56 L 59 L Respiratory Rate 24 Blood Pressure 157/52 H Pulse Oximetry 94 L Intake & Output 03/23/18 03/24/18 03/24/18 18:59 06:59 18:59 Intake Total 400 / 400 480 / 480 Output Total 200 / 200 550 / 550 Balance 200 / 200 -70 / -70 Weight 84 kg Intake: IV 400 / 400 0 / 0 NS Inj 1,000 ML @ 84 mls/hr IV. 400 / 400 0 / 0 CONT .[id number] [facility] Rx#:[id number] Oral 480 / 480 Output: Urine 200 / 200 550 / 550 Other: # Voids 2 Date of Last Bowel Movement 03/22/18 03/23/18 03/23/18 Narrative: GENERAL: WN, WD, resting in bed in NAD. SKIN: Warm and dry. NECK: Supple no tender LAD or JVD. HEART: regular rate and rhythm, IV/ systolic murmur at LRSB LUNGS: CTAB without wheezes or crackles. ABDOMEN: +BS, soft, NT, ND. EXTREMITIES: No LE edema. 2+ pedal pulses. NEURO: Awake and alert. Nonfocal. PSYCH: Appropriate mood and affect. Assessment and Plan - Plan Assessment: 87 yo M with CAD, CABG x 4 (2007), bioprosthetic AVR (2008), HTN, CHF and CM. 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 Echo reveals severely dilated left ventricular hypertrophy with low flow low gradient severe (mean gradient 34mmHg, BAILEY 0.52cm), EF < 20% AICD/ biventricular PPM planned for yesterday was postponed; procedure to be done today. patient is npo. cardiomyopathy- EF < 20%. presumed ischemic. no ischemic workup required while inpatient currently. needs a LRHC as part of pre-TAVR workup which can be performed electively in outpatient setting in the near future. As part of guideline directed medical therapy will initiate carvedilol 6.25mg BID, lisinopril 10mg and atorvastatin 10mg. continue asa. likely d/c planning for tomorrow. will need to establish with a car trimmer ( patient does not have [facility] insurance) for management of elective TAVR and cardiomyopathy. Recommend Dr. Trupti Amaro for outpatient management.
[2018-03-24] MEDS: Sod Chloride 0.9% Inj 1,000 ML IV.CONT SCH ×2 (08:50→20:52)
[2018-03-24] MEDS: Chlorhexidine Gluconate 2% 1 Pack (2 Cloths) TOPICAL SCH (09:00)
[2018-03-24] MEDS: Carvedilol 6.25 MG Tablet PO SCH ×2 (09:48→20:24)
[2018-03-24] MEDS ORDERED: Heparin/NS PF Inj 500 ML ONE (10:50)
[2018-03-24] MEDS ORDERED: Sod Chloride 0.9% Inj 1,000 ML IV.CONT ONE (11:40)
[2018-03-24] MEDS ORDERED: Sodium Chlor 0.9% Inj 250 ML IV.CONT ONE (11:40)
[2018-03-24] MEDS ORDERED: Isoproterenol HCl Inj 0.2 MG/ML Ampul ONE (11:44)
[2018-03-24] MEDS ORDERED: Iohexol 350 MG/ML 50 ML Vial (for EPS) IVCONTRAST ONE (11:48)
[2018-03-24] MEDS ORDERED: Lidocaine PF 1% Inj 5 ML Syringe OTHER ONE (11:50)
[2018-03-24] MEDS ORDERED: Sodium Chlor 0.9% Inj 50 ML ONE (11:54)
[2018-03-24] MEDS ORDERED: Phenylephrine/NS 1000 MCG/10ML Syringe IV.PUSH ONE (12:00)
--- NOTE | 2018-03-24 12:23 | CATHPROC ---
Patient Name: Gaurang Gonzalez Study #: [id number] Initial MD: Aaron Kunz Date of : 1930 Study Date: 03/24/2018 Cardiac Catheterization Report 03/24/2018 4:02:07 PM Financial #: [id number] 1 of 7 Patient Name: Gaurang Gonzalez Study #: [id number] Initial MD: Aaron Kunz Date of : 1930 Study Date: 03/24/2018 Entire Case Report Patient Information Patient Name Gaurang Gonzalez Date of 1930 Age 87 years Financial # [id number] Gender M AlternateID Lab Number 6 Accession # Room Number Height (in) 71.0 Height (cm) 180.3 BSA 2.06 Weight (lbs) 188.8 Weight (kg) 85.8 Patient Address/Phone Number Home Address [facility] Home Phone Number [address] [facility] [address] Study Information Study Number Scheduled Start Study Start [id number] 03/24/2018 03/24/2018 [place] [facility] Electrophysiology Study Referring Institution Admit Source Facility Department 1 Other [facility] - Testing Coordinator Physician and Clinical Staff Initial Aaron Watson Inspecting Engineer Linda Castro,SECURITY INCIDENT RESPONSE SPECIALIST TECH2 Other Anesthesia, REFINING EQUIPMENT OPERATOR Recorder Angela Boggs,RN Anayeli Mendiola RCIS TECH2 03/24/2018 4:02:07 PM Financial #: [id number] 2 of 7 Patient Name: Gaurang Gonzalez Study #: [id number] Initial MD: Aaron Kunz Date of : 1930 Study Date: 03/24/2018 Equipment Time Tunneling Machine Operator Description Size Mfg Part Number Used/Scraped [id number] 10:59 Wi3 BLANKET,WARM AIR CCL * Used *[id number] 10:59 Wi3 PACK, CCL CUSTOM * Used *[id number] 10:59 mSeller PACER INFANTE, LIMB * 2530 *[id number] Used [id number] 10:59 [employer] J[employer] MEDICAL CATHETER, JSN, QUAD FR 5 Used *[id number] 935172 10:59 [employer] MEDICAL CATHETER, JSN, QUAD FR 5 Used *[id number] 474979 10:59 [employer] MEDICAL CATHETER, JSN, QUAD FR 5 Used *[id number] 908007 12:14 [employer] J[employer] MEDICAL CATHETER, JSN, QUAD FR 5 Used *[id number] [id number] 10:59 [employer] JANET MEDICAL ELECTRODE KIT, RYAN X SURFACE * Used *[id number] 743271 12:22 [employer] MEDICAL SHEATH, EPS, FR5 FAST CATH FR 5 Used *[id number] 055120 12:22 [employer] MEDICAL SHEATH, EPS, FR5 FAST CATH FR 5 Used *3221084 125381 12:22 [employer] MEDICAL SHEATH, EPS, FR5 FAST CATH FR 5 Used *[id number] 231502 12:22 [employer] J[employer] MEDICAL SHEATH, EPS, FR6 FAST CATH FR 6 Used *[id number] [facility] PAD, ELECTROSURGICAL 10:59 * E7506 *[id number] Used SURGICAL GROUNDING (BLUE) Insurance Information Insurance Payor None Third Democrat Third Democrat Number [employer] UHCMCR MEDICARE History: Allergies Allergy Reaction No Known Allergies History: Risk Factors Hypertension Previous Heart Failure Yes Yes Prior Valve Prior CABG Surgery Yes Yes Labs 03/24/2018 4:02:07 PM Financial #: [id number] 3 of 7 Patient Name: Gaurang Gonzalez Study #: [id number] Initial MD: Aaron Knuz Date of : 1930 Study Date: 03/24/2018 Hgb (g/dl) Hct (%) RBC (MIL/MM3) WBC (l/cumm) Platelets (thousands) 11.60-17.00 35.00-51.00 4.00-5.90 4.00-11.00 150.00-450.00 14.5 42.3 4.4 6.4 150 Glucose (mg/dl) BUN (mg/dl) Creatinine (mg/dl) BUN:Creatinine (1:x) 74.00-106.00 7.00-18.00 0.50-1.30 10.00-20.00 111 17 1.1 15.5 Na (meq/l) K (meq/l) 136.00-145.00 3.50-5.10 140 4 INR (PTT:PT) 0.90-1.10 1.1 Medication Medication Total Dose (Bolus/Oral) Medication Total Dosage/Unit 1% XYLOCAINE 20 mL Medications (Bolus/Oral) Medication Time Given Dosage/Unit Administered By Reason 1% XYLOCAINE 03/24/2018 12:05:40 PM 20 mL Aaron Kunz 20 mL 1% XYLOCAINE given in lab by Aaron Kunz in Right Groin via Subcutaneous. Ordered by Vito Kunz. 03/24/2018 4:02:07 PM Financial #: [id number] 4 of 7 Patient Name: Gaurang Gonzalez Study #: [id number] Initial MD: Aaron Kunz Date of : 1930 Study Date: 03/24/2018 Initial Case Assessment Cardiovascular HR NIBP 81 145/74 Edema Present Skin color Skin None Normal Warm Dry Circulatory - Right Pulses Dorsalis Pedis 1 Scale (0,1,2,3,4,d) Circulatory - Left Pulses Dorsalis Pedis 1 Scale (0,1,2,3,4,d) Circulatory - Lower Extremities Color Lower Right Color Lower Left Normal Normal Neurological State Oriented to time-place- Alert Moves all extremities person Respiration - General Respiration Rate SpO2 (%) (B/min) 18 95 Chronological Log Time Study Chronological Log 11:23:44 Patient arrived via Bed. 11:23:45 Patient Name, D.O.B, / Armband Verified By R.N. 11:23:46 Pre-op and post- op instructions given; patient acknowledges understanding of instructions. 11:23:47 Verbal Stimulation=2 Physical Stimulation=2 Airway=2 Respiration=2 TOTAL=8. (0=absent, 1=li mited, 2=present) 11:24:15 Patient has been NPO for More than 6Hrs. 11:24:46 Consent signed by the physician and the patient and verified by the Testing Coordinator staff. 11:25:18 Skin Breakdown- none. 11:25:19 Patient Warmer Placed on the Table. 11:25:26 History and physical on the chart or being dictated. 03/24/2018 4:02:07 PM Financial #: [id number] 5 of 7 Patient Name: Gaurang Gonzalez Study #: [id number] Initial MD: Aaron Kunz Date of : 1930 Study Date: 03/24/2018 11:26:00 Disposable Defibrillator Pads Placed On Patient. 11:26:20 Fide Prominences Protected 11:30:08 Anesthesia at bedside. Assumes care of patient. 11:40:24 A # 18 IV was noted in the Antecubital (right). Grade = 0 0.9% NaCl @ KVO Assessment: Initial Case, HR=81 BPM, EKBT=338/74 mmhg, Edema=None, Color=Normal, Skin = Warm, D ry Right Pulses: Jerod Ped=1 Left Pulses: Jerod Ped=1 11:45:11 Lower Right Extremities: Color=Normal Lower Left Extremities: Color=Normal Neurological: State=Alert, Ox3, ARAUZ Respiration: Resp=18 B/min, SpO2=95 % 11:45:25 A # 20 IV was noted in the Antecubital (left). Grade = 0 0.9% NaCl @ KVO 11:45:28 Table restraints applied according to hospital policy 11:45:30 Bilateral groin prepped with 2% chlorhexidine, and draped after a 3 min. waiting time. 11:46:03 MD paged 11:46:09 MD responded 11:48:23 Anesthesiologist present for LMA insertion. Dr. Vega. 11:48:38 A sterile drape was appplied after a 3 minute prep drying time. 11:51:36 Reference ECG taken 11:54:52 MD notified again 11:54:57 MD responded 11:58:55 Reference ECG taken 12:02:33 MD arrived. Time Out. Correct patient, procedure, procedure equipment, site and side verified with physicia n present. Time 12:04:45 concurred by MD, individual staff and REFINING EQUIPMENT OPERATOR. Time Out #2 - Consents verified, patient in correct position, all results are labled and displa yed, safety precautions 12:05:36 taken, antibiotics administered. Time out concurred by MD, individual staff and REFINING EQUIPMENT OPERATOR in procedu re 12:05:40 Case Start 12:05:40 20 mL 1% XYLOCAINE given in lab by Aaron Kunz in Right Groin via Subcutaneous. Ordered b Aaron Jerez. 12:05:54 Vascular access was obtained in the Fem Vein (right). 12:06:11 Vascular access was obtained in the Fem Vein (right). 12:06:22 Vascular access was obtained in the Fem Vein (right). 12:06:53 Vascular access was obtained in the Fem Vein (right). 12:06:56 A SHEATH, EPS, FR6 FAST CATH FR 6 was advanced into the Fem Vein (right) using the Modified Seldinger technique. 12:07:11 A SHEATH, EPS, FR5 FAST CATH FR 5 was advanced into the Fem Vein (right) using the Modified Seldinger technique. 12:07:47 A SHEATH, EPS, FR5 FAST CATH FR 5 was advanced into the Fem Vein (right) using the Modified Seldinger technique. 12:07:58 A SHEATH, EPS, FR5 FAST CATH FR 5 was advanced into the Fem Vein (right) using the Modified Seldinger technique. A CATHETER, JSN, QUAD FR 5 was advanced vis Fem Vein (right) and placed in the CS. Placement wa s visually 12:11:04 confirmed under fluoroscopy. A CATHETER, JSN, QUAD FR 5 was advanced vis Fem Vein (right) and placed in the HIS. Placement w as visually 12:12:10 confirmed under fluoroscopy. 03/24/2018 4:02:07 PM Financial #: [id number] 6 of 7 Patient Name: Gaurang Gonzalez Study #: [id number] Initial MD: Aaron Kunz Date of : 1930 Study Date: 03/24/2018 A CATHETER, JSN, QUAD FR 5 was advanced vis Fem Vein (right) and placed in the HRA. Placement was visually 12:12:25 confirmed under fluoroscopy. A CATHETER, JSN, QUAD FR 5 was advanced vis Fem Vein (right) and placed in the RVA. Placement was visually 12:12:40 confirmed under fluoroscopy. 12:13:56 EP study in progress. 12:15:30 Incremental Pacing in progress. 12:19:03 Case End (Physician broke scrub) 12:19:10 Initial procedure has been completed. Beginning additional procedure. 12:19:11 NOTE: This patient is undergoing an additional procedure while still in the Cardiac Cath L ab. 12:19:11 No case complications noted. 12:19:11 EP Procedure was performed. End Study - Contrast Media Used In Study Contrast Total Opened (mL) Total Used (mL) Total Wasted (mL) Unspecified 0 0 0 End Study - Maximum Contrast Load Max Contrast Load (mL) 390.1 End Study - Radiation Exposure Fluoro Time (minutes) 1.4 End Study - Patient Disposition Complications Transferred To No Telemetry Bed 03/24/2018 4:02:07 PM Financial #: [id number]
[2018-03-24] MEDS ORDERED: Sodium Chlor 0.9% Inj 250 ML ONE (14:42)
[2018-03-24] MEDS ORDERED: fentaNYL Citrate Inj 100 MCG/2 ML Ampul ONE (15:41)
[2018-03-24] MEDS ORDERED: Heparin/NS PF Inj 1,000 ML ONE (15:44)
--- NOTE | 2018-03-24 15:51 | CATHPROC ---
Patient Name: Gaurang Gonzalez Study #: [id number] Initial MD: Aaron Kunz Date of : 1930 Study Date: 03/24/2018 Cardiac Catheterization Report 03/24/2018 3:51:33 PM Financial #: [id number] 1 of 9 Patient Name: aGurang Gonzalez Study #: [id number] Initial MD: Aaron Kunz Date of : 1930 Study Date: 03/24/2018 Entire Case Report Patient Information Patient Name Gaurang Gonzalez Date of 1930 Age 87 years Financial # [id number] Gender M AlternateID Lab Number 6 Room Number 450 Height (in) 71.0 Height (cm) 180.3 BSA 2.06 Weight (lbs) 188.1 Weight (kg) 85.5 Patient Address/Phone Number Home Address [facility] Home Phone Number [address] [facility] [place] [address] Study Information Study Number Admission Scheduled Start Study Start [id number] Mar 22 2018 7:58PM 03/24/2018 Mar 24 2018 12:27PM [place] [facility] Electrophysiology Study Admit Source Facility Department Other [facility] - Fretted Instrument Maker Hand Physician and Clinical Staff Initial Aaron Watson Lumber Tying Machine Operator Linda Castro,WINDOWS SOFTWARE DEVELOPER TECH2 Other Anesthesia, WHISKEY REGAUGER Recorder Angela Boggs,RN Litub Anayeli Zeng,BOREMATIC OPERATOR TECH2 Procedures Performed Procedure Location (Site) Vessel Name Lead Insertion Lead Revision Venogram Coronary Sinus Other Wire insertion Subclav. Vein (Lft Subclavian Vein 03/24/2018 3:51:33 PM Financial #: [id number] 2 of 9 Patient Name: Gaurang Gonzalez Study #: [id number] Initial MD: Aaron Kunz Date of : 1930 Study Date: 03/24/2018 Equipment Time Donor Recruiter Description Size Mfg Part Number Used/Scraped COPILOT VALVE, BLEEDBACK [id number] 13:38 [employer] Used CONTROL *[id number] 75428-13 13:38 [employer] WIRE, ASAHI PROWATER 180CM 180CM Used *3428237 19594-15 13:54 [employer] WIRE, ASAHI PROWATER 180CM 180CM Used *6794833 14:21 BIOTRONIK DEFIBRILLATOR, ILIVIA 7 HF-T QP [id number] Used 12:59 BIOTRONIK LEAD, PLEXA PRO-MRI SD 65/18 65 [id number] Used 13:10 BIOTRONIK LEAD, SOLIA 60 53 PRO MRI * 708521 Used DERMABOND, ADHESIVE SKIN DHVM12 12:29 CORDIS/PACER * Used GLUE MINI *0639567 ABR3155 12:29 Easy Ice BLANKET,WARM AIR CCL * Used *0938637 TP-1103 12:29 Easy Ice SUTURE, STRIP PLUS 1/2" * Used *9541341 12:29 MEDLINE PACER INFANTE, LIMB * 2530 *0452403 Used [id number] 12:29 MEDLINE PACER PACK, PACER CUSTOM * Used *8636211 12:30 [employer] PACER SAFE SHEATH, FR7, 13CM FR 7 CLS-1007 Used 12:31 [employer] PACER SAFE SHEATH, FR8, 13CM FR 8 CLS-1008 Used 12:31 [employer] PACER SAFE SHEATH, FR9, 13CM FR 9 CLS-1009 Used 12:46 Needle Sponge Count 2 22 Used 12:46 Needle Sponge Count 20 200 Used 12:46 Needle Sponge Count 6 6 Used 13:18 NYCOMED OMNIPAQUE, 350 MG, 50ML 50ML [id number] Used SUTURE, 0 ETHIBOND [CT1] (CX21D), 8pk SUTURE, 2-0 VICRYL [CT1] (YKJ594A) SUTURE, 2-0 VICRYL [CT1] (PRX855B) 13:16 [employer] JANET MEDICAL LIVEWIRE, QUAD, LRG SWEEP FR 6 949859 Used [place] PAD, ELECTROSURGICAL 12:29 * E7507 *2697861 Used SURGICAL GROUNDING ORANGE LEAD, ATTAIN PERFORMA 13:46 VITATRON MEDTRONIC 88CM 4398-88CM Used STRAIGHT, 88CM 5923-3475 12:29 ZOLL MEDICAL ANITRA. / * Used *99321 03/24/2018 3:51:33 PM Financial #: [id number] 3 of 9 Patient Name: Gaurang Gonzalez Study #: [id number] Initial MD: Aaron Kunz Date of : 1930 Study Date: 03/24/2018 Equipment Model, Serial, Lot Number and Expiration Data Description Model Number Serial Number Lot Number Expiration Date DEFIBRILLATOR, ILIVIA 7 HF-T QP [id number] 12-07-2018 LEAD, ATTAIN PERFORMA 4398-88 [id number] 01-02-2020 STRAIGHT, 88CM LEAD, PLEXA PRO-MRI SD 65/18 [id number] 01-07-2020 LEAD, SOLIA 60 53 PRO MRI [id number] 08-09-2019 Insurance Information Insurance Payor None Third Alliance Party Third Alliance Party Number [employer] UHCMCR MEDICARE History: Allergies Allergy Reaction No Known Allergies History: Risk Factors Hypertension Dyslipidemia Yes Yes Prior Valve Prior CABG Surgery Yes Yes Labs Hgb (g/dl) Hct (%) RBC (MIL/MM3) WBC (l/cumm) Platelets (thousands) 11.60-17.00 35.00-51.00 4.00-5.90 4.00-11.00 150.00-450.00 14.5 42.3 4.4 6.4 150 Glucose (mg/dl) BUN (mg/dl) Creatinine (mg/dl) BUN:Creatinine (1:x) 74.00-106.00 7.00-18.00 0.50-1.30 10.00-20.00 111 17 1.1 15.5 INR (PTT:PT) 0.90-1.10 1.1 Medication 03/24/2018 3:51:33 PM Financial #: [id number] 4 of 9 Patient Name: Gaurang Gonzalez Study #: [id number] Initial MD: Aaron Kunz Date of : 1930 Study Date: 8 Medication Total Dose (Bolus/Oral) Medication Total Dosage/Unit 2% XYLOCAINE 40 mL Medications (Bolus/Oral) Medication Time Given Dosage/Unit Administered By Reason 2% XYLOCAINE 03/24/2018 12:50:57 PM 40 mL Aaron Kunz 40 mL 2% XYLOCAINE given in lab by Aaron Kunz in Left shoulder via Subcutaneous. Ordered by Aaron Kunz. Medication (Drip) Medication Time Given Dosage/Unit Concentration/Unit Diluent (ml) Solution ANCEF 03/24/2018 11:59:00 AM 2 g 2 g ANCEF given in lab by Anesthesia, WHISKEY REGAUGER via Peripheral IV. Ordered by Hanscy. Ze Reason: As pe r physicians verbal order. VANCOMYCIN DRIP 03/24/2018 12:01:00 PM 1 g 1 g VANCOMYCIN DRIP given in lab by Anesthesia, WHISKEY REGAUGER via Peripheral IV. Ordered by Aaron Kunz. [place] son: As per physicians verbal order. Final Case Assessment Cardiovascular HR NIBP 74 119/69 Edema Present Skin color Skin None Normal Warm Dry Circulatory - Right Pulses Dorsalis Pedis 1 Scale (0,1,2,3,4,d) Circulatory - Left Pulses Dorsalis Pedis 1 Scale (0,1,2,3,4,d) Circulatory - Lower Extremities Color Lower Right Color Lower Left Normal Normal Neurological State Drowsy Moves all extremities Respiration - General Respiration Rate SpO2 (%) O2 (lpm) (B/min) 18 99 4 03/24/2018 3:51:33 PM Financial #: [id number] 5 of 9 Patient Name: Garuang Gonzalez Study #: [id number] Initial MD: Aaron Kunz Date of : 1930 Study Date: 03/24/2018 Chronological Log Time Study Chronological Log 2 g ANCEF given in lab by Anesthesia, WHISKEY REGAUGER via Peripheral IV. Ordered by Aaron Kunz. Reason: As per physicians 11:59:00 verbal order. 1 g VANCOMYCIN DRIP given in lab by Anesthesia, WHISKEY REGAUGER via Peripheral IV. Ordered by Zane Kunz Reason: As per 12:01:00 physicians verbal order. 12:19:44 NOTE: This patient is undergoing an additional procedure while still in the Cardiac Cath La b. 12:19:44 Anesthesia remains at bedside. Continues to assume care of patient. 12:19:45 Initial procedure has been completed. Beginning additional procedure. 12:19:45 Biotronik rep present at bedside for case. Jesus 12:19:46 Bovie ground pad applied to: left thigh 12:21:55 2% CHLORHEXIDINE GLUCONATE WASH AND NASAL SWIPE DONE PRIOR TO PROCEDURE. 12:23:25 Bilateral Upper Chest Prepped Times Two. 12:33:02 Reference ECG taken 12:34:15 A sterile drape was applied after a 5minute prep drying time. First Sponge And Instrument Count Done by Anayeli Zeng RCIS TECH2. 12:34:19 Hypo's: 6, Sponges: 20, Bovie/scratch: 2 Sutures: 10, Blades: 1, Instruments: 26, Syveck Patches: 0 verified by PF All Catheters except CS quad cath were removed. Sheaths left in place with heparinized saline l tod attached to each of 12:40:30 the other 3 lines. 12:50:57 40 mL 2% XYLOCAINE given in lab by Aaron Kunz in Left shoulder via Subcutaneous. Ordered by Aaron Kunz. 12:53:42 Vascular access was obtained in the Subclav. Vein (Lft. 12:53:45 Wire inserted 12:54:13 Vascular access was obtained in the Subclav. Vein (Lft. 12:54:19 Wire inserted 12:54:36 Vascular access was obtained in the Subclav. Vein (Lft. 12:54:40 Wire inserted 12:54:46 Surgical Incision Made. 12:55:40 A pocket was created at the Lt. upper chest. 12:57:32 A SAFE SHEATH, FR8, 13CM FR 8 was advanced into the Subclav. Vein (Lft using the Modified S eldinger technique. 12:57:33 Wire out 12:57:48 A LEAD, PLEXA PRO-MRI SD 65/18 65 was inserted and positioned in the CS/LV. 12:59:09 Lead placement verified under fluoroscopy 12:59:26 The CS/LV lead impedance and threshold is being tested. 13:00:09 The CS/LV Lead Was Revised. 13:00:23 Lead placement verified under fluoroscopy 13:04:49 The CS/LV lead impedance and threshold is being tested. 13:05:47 The CS/LV lead was sutured to the fascia. 13:07:29 A SAFE SHEATH, FR7, 13CM FR 7 was advanced into the Subclav. Vein (Lft using the Modified S eldinger technique. 03/24/2018 3:51:33 PM Financial #: [id number] 6 of 9 Patient Name: Gaurang Gonzalez Study #: [id number] Initial MD: Aaron Kunz Date of : 1930 Study Date: 03/24/2018 13:07:53 Wire out 13:08:18 A LEAD, SOLIA 60 53 PRO MRI * was inserted and positioned in the RV. 13:08:51 Lead placement verified under fluoroscopy 13:09:04 The RV lead impedance and threshold being tested. 13:09:35 The RV lead was sutured to the fascia. 13:12:11 A SAFE SHEATH, FR9, 13CM FR 9 was advanced into the Subclav. Vein (Lft using the Modified S eldinger technique. Wire out 13:12:13 A LIVEWIRE, QUAD, LRG SWEEP FR 6 was advanced vis Subclav. Vein (Lft and placed in the CS. Plac ement was 13:16:53 visually confirmed under fluoroscopy. 13:17:31 The Coronary Sinus was manually injected with 30 cc's of contrast. OMNIPAQUE, 350 MG, 50ML 50ML used. 13:29:10 A smaller cath guide system was inserted to cross CS branch 13:39:22 Unable to pass catheter across CS. 13:39:32 A WIRE, ASAHI PROWATER 180CM 180CM was inserted via Subclav. Vein (Lft. 13:48:09 A smaller cath guide was now inserted into CS branch over the wire. 13:48:11 Wire out. 13:48:58 Lead placement verified under fluoroscopy 13:49:55 The CS/LV lead impedance and threshold is being tested. 13:52:21 Lead placement verified again under fluoroscopy and has migrated so was removed. 13:53:01 A WIRE, ASAHI PROWATER 180CM 180CM was inserted via Subclav. Vein (Lft. 13:53:07 The CS/LV Lead Was Revised. 13:54:09 A smaller cath guide was reinserted over the wire. 14:05:13 Continuing to reposition lead with EP guidance. 14:14:03 Wire out. 14:14:23 A LEAD, ATTAIN PERFORMA STRAIGHT, 88CM 88CM was inserted and positioned in the CS/LV. 14:14:30 Lead placement verified under fluoroscopy 14:17:45 The CS/LV lead impedance and threshold is being tested. 14:18:31 The CS/LV Lead Was Revised. 14:19:40 Lead placement verified under fluoroscopy 14:19:49 The CS/LV lead impedance and threshold is being tested. 14:21:18 The CS/LV lead was sutured to the fascia. 14:27:03 A DEFIBRILLATOR, ILIVIA 7 HF-T QP was connected and placed in the pocket. 14:27:29 Pocket flushed with antibiotic solution 14:28:58 Device settings being tested and adjusted by FriendsEATronik rep. 14:30:38 The pocket is being closed. Second Sponge And Instrument Count Done by Anayeli Zeng, BOREMATIC OPERATOR TECH2. 14:30:56 Hypo's: 6, Sponges: 20, Bovie/scratch: 2 Sutures: 11, Blades: 1, Instruments: ~INSTRU~, Syveck Patches: 0 verified by PF 14:35:15 Holding Area notified of successful intervention. 03/24/2018 3:51:33 PM Financial #: [id number] Patient Name: Gaurang Gonzalez Study #: [id number] Initial MD: Aaron Kunz Date of : 1930 Study Date: 03/24/2018 14:35:16 Bedside Report will be given. 14:35:18 Implantable Device card placed in patient's chart. 14:35:20 PACU called. Spoke to Ramya. Post implant fluoro image to verify no lead migration taken. Lead has migrated. Prepping to go back in for revision, 14:39:57 pocket closure aborted and reopened. 14:41:28 Pocket reopened for CS/LV lead revision. 14:46:39 CIC called to deliver condition report to family. 14:49:59 The CS/LV Lead Was Revised. 14:53:46 Lead placement verified under fluoroscopy 14:54:44 The CS/LV lead impedance and threshold is being tested. 14:56:16 The CS/LV lead was sutured to the fascia. 14:56:35 The pocket is being closed again. Third Sponge And Instrument Count Done by Anayeli Zeng, BOREMATIC OPERATOR TECH2. 14:57:20 Hypo's: 6, Sponges: 20, Bovie/scratch: 2 Sutures: 21, Blades: 1, Instruments: ~INSTRU~, Syveck Patches: 0 verified by PF 15:04:07 Implant Procedure was performed. 15:04:16 A Bivent ICD Implant . (Dual) 15:06:36 Bedside Report will be given. 15:08:45 The pocket was closed. 15:08:46 Case End (Physician broke scrub) Final Sponge And Instrument Count Done by Anayeli Zeng RCIS TECH2. 15:09:22 Hypo's: 6, Sponges: 20, Bovie/scratch: 2 Sutures: 21, Blades: 1, Instruments: 26, Syveck Patches: 0 verified by PF 15:13:01 Steri-strips and a sterile dressing applied to site. 15:13:22 No case complications noted. 15:13:30 Cine recording checked. 15:14:34 Catheter(s) removed without difficulty 15:14:39 Sheaths removed; pressure applied to access site. PF 15:17:00 LMA was removed by anesthesia and supplemental oxygen was applied by SFM. 15:18:10 Defibrillator and ground pads removed. Skin intact. Assessment: Final Case, HR=74 BPM, CLBZ=119/69 mmhg, Edema=None, Color=Normal, Skin = Warm, Dry Right Pulses: Jerod Ped=1 Left Pulses: Jerod Ped=1 15:18:38 Lower Right Extremities: Color=Normal Lower Left Extremities: Color=Normal Neurological: State=Drowsy, ARAUZ Respiration: Resp=18 B/min, SpO2=99 %, O2=4 lpm 15:19:49 Sterile dressing applied to site rt groin site. 15:20:22 A sling was placed on the affected arm. 15:20:36 Patient moved to stretcher Pt transported to PACU on portable oxygen and monitors with WHISKEY REGAUGER and tech accompanying him. Pt left in stable 15:27:35 condition. 03/24/2018 3:51:33 PM Financial #: [id number] 8 of 9 Patient Name: Gaurang Gonzalez Study #: [id number] Initial MD: Aaron Kunz Date of : 1930 Study Date: 03/24/2018 End Study - Contrast Media Used In Study Contrast Total Opened (mL) Total Used (mL) Total Wasted (mL) Omnipaque 50 30 20 End Study - Maximum Contrast Load Max Contrast Load (mL) 388.6 End Study - Radiation Exposure Fluoro Time (minutes) 40.7 End Study - Patient Disposition Complications Transferred To Interventional Outcome No Telemetry Bed successful 03/24/2018 3:51:33 PM Financial #: [id number] [phone]
--- NOTE | 2018-03-24 16:20 | XR ---
EXAM DATE: 03/24/2018 4:12 PM EDT AGE/SEX: 87 years / Male INDICATIONS: Post pacemaker. CLINICAL DATA: This is the patient's subsequent encounter. Patient reports that signs and symptoms h ave been present for 2 days and indicates a pain score of 0/10. MEDICAL/SURGICAL HISTORY: Cardiovascular disease. CABG. COMPARISON: [facility] – [place], CHEST 2V PA&LAT, 03/22/2018. . FINDINGS: 2 portable frontal views of the chest show mild cardiomegaly. Motion degrades the study limiting the evaluation of the pulmonary vasculature. No infiltrate or effusion is seen. Patient device and median sternotomy wires are observed. CONCLUSION: Cardiomegaly without appreciable pulmonary vascular engorgement. Pulmonary vessels are limited in the ir evaluation due to breathing motion artifact. Electronically signed by: Chau Noel MD 03/24/2018 4:19 PM EDT
--- NOTE | 2018-03-24 19:58 | MP ---
cc: Aaron Kunz MD DATE OF OPERATION: 03/24/2018 PROCEDURE PERFORMED: Biventricular pacer defibrillator insertion, repolarization of left ventricular lead, very complex case. INDICATIONS FOR PROCEDURE: Mr. Gonzalez is an 87-year-old gentleman with coronary artery disease, congestive heart failure, cardiomyopathy, ejection fraction 20%, defibrillator, ventricular tachycardia on electrophysiology study who will undergo biventricular pacer defibrillator insertion for sudden prevention and resynchronization therapy. The patient has complete AV block. The risks, the nature and the benefits of the procedure were clearly stated to him. Risks included pneumothorax, cardiac perforation, stroke, need for open heart surgery and even . The patient understood and agreed to proceed. DESCRIPTION OF PROCEDURE: As written informed consent was obtained prior to the electrophysiology study, the patient was kept on the table where he was prepped and draped in the usual sterile fashion. Conscious sedation was initiated and maintained throughout the procedure by the anesthesiologist. Once sedation was verified, the left infraclavicular area was anesthetized with 2% Xylocaine. Using a modified Seldinger technique, the left subclavian vein was cannulated on 2 occasions and 2 guidewires were advanced. Then, using a #11 blade scalpel, a 3 cm incision was made 2 fingerbreadths below the left clavicle. This incision was taken down to the fascial layers using Bovie cautery and blunt dissection. In the inferomedial direction, a device pocket was dissected and then the wires were dissected into the pocket. A 2-0 Vicryl suture was placed around the wires to prevent back bleeding. At this point, over the lateral wire and the 7 Wolof dilator, an introducer was advanced. As the dilator and wire were removed, an active fixation right ventricular pacing and sensing defibrillator lead was advanced. After adequate pacing and sensing thresholds were obtained, the lead was secured in the pocket using #2 Ethibond suture. Then, over the medial wire, a 7 Wolof dilator and introducer were advanced. As the dilator and wire were removed, an active fixation right atrial pacing and sensing lead was advanced. After adequate pacing and sensing thresholds were obtained, the lead was secured in the pocket using #2 Ethibond suture. Then, over the remaining wire a 9 Wolof dilator and introducer were advanced. As the dilator and wire were removed, a CS cannulation sheath was advanced. Through the sheath, a quadripolar steerable catheter was advanced. After multiple attempts, the coronary sinus was cannulated. CS venography showed the lateral branch with a stiff angle and the posterolateral branch. In the rest, there was a lot of disease in all those branches. After multiple attempts using a subselector, the lateral branch was cannulated. The lead was advanced over the wire. After adequate pacing and sensing thresholds were obtained, the peel-away introducer was removed and the cutter introducer was removed. At that point in time, I did realize the lead dislodged. I did re-attempt cannulation of the CS. CS was recannulated after multiple attempts. At that point, I did a focus on the anterolateral branch. The wire was advanced over the bridge and the lead was advanced. After adequate pacing and sensing thresholds were obtained, the peel-away introducer was removed and the cutter introducer was removed and the lead was secured in the pocket using #2 Ethibond suture. At that point, the pocket was copiously irrigated with antibiotic solution. The leads then were connected to the generator and placed into the pocket. I did proceed with closure. The deep fascial layer was approximated using #2-0 Vicryl suture in a continuous fashion. The subcutaneous layer was reapproximated using #2-0 Vicryl suture in a continuous fashion. The subcuticular layer was approximated using #2-0 Vicryl suture in a continuous fashion. Adequate sensing of the LV lead was not seen and there was poor capture. Fluoroscopy showed lead dislodgement. I did reopen the pocket. The hybrid stylet from [employer] was advanced. After multiple manipulations, I did advance the lead into the anterolateral branch. After adequate pacing and sensing thresholds were obtained, the lead was secured in pocket using #2 Ethibond suture. Then, I did proceed with closing of the pocket. The deep fascial layer was approximated using #2-0 Vicryl suture in a continuous fashion. The subcutaneous layer was approximated using #2-0 Vicryl suture in a continuous fashion. The subcuticular layer was approximated using #2-0 Vicryl suture in continuous fashion. Dermabond adhesive was applied to the wound, followed by a sterile pressure dressing. There was no complication. It was a very difficult case. Blood loss was minimal. IMPLANTED HARDWARE: The implanted biventricular pacer defibrillator was a Biotronik model #144562, serial #[id number]. The right atrial pacing and sensing lead was a Biotronik model #652141, serial #[id number]. The right ventricular pacing and sensing lead was a Biotronik model #594897, serial #[id number]. The left ventricular pacing and sensing lead was a Medtronic model #4398-88, serial #[id number]. THRESHOLDS: The right atrial pacing threshold in bipolar mode was 1.5 volts at 0.4 millisecond, lead impedance 770 ohms, P wave at 2.2 millivolts. The right ventricle pacing threshold in bipolar mode was 0.4 volts at 0.4 milliseconds, lead impedance 710 ohms, R wave at 8 millivolts. The left ventricular pacing threshold in bipolar mode was 1.7 volts at 1 millisecond, lead impedance 795 ohms. SETTINGS: The device set in DDD60, upper rate limit 120 beats per minute. AV delay paced at 160 and sensed at 140. LV first by 40 milliseconds. Defibrillator portion for 2 zones, 1 zone for ventricular tachycardia between 160-240 beats per minute. Initial therapy consists of 1 burst of ATP 1 ramp, 81%, 10 pause, 10 millisecond decremental, followed by 20, then 30 and a second shock at 40 joule defibrillatory shock. Second zone for ventricular fibrillation above 240 beats per minute, first therapy at 30 and a subsequent shock at 40 joule defibrillatory shock. CONCLUSION: Successful biventricular pacer defibrillator insertion. RECOMMENDATIONS: The patient is going to be transferred to the telemetry unit. He will be observed and can be discharged home when stable or whenever it is okay with the managing team. MD ROBBIN Bello/leeanne , 03:11 PM , 03:25 PM
[2018-03-24] MEDS ORDERED: ceFAZolin 2 GM Premix Inj 2 GM/50 ML PIGGYBACK IV.SIG SCH (20:00)
[2018-03-24] MEDS: ceFAZolin 2 GM Premix Inj 2 GM/100 ML BAG IV.SIG SCH (20:24)
--- NOTE | 2018-03-24 20:32 | MA ---
cc: Aaron Knuz MD DATE: 03/17/2018 PROCEDURE PERFORMED: Electrophysiology study and CS cannulation. INDICATIONS: An 87-year-old gentleman with coronary artery disease, congestive heart failure, cardiomyopathy who will undergo an electrophysiology study. The risks, the nature and the benefits of the procedure were clearly stated to him. The risks included pneumothorax, cardiac perforation, stroke, need for open heart surgery and even . The patient understood and agreed to proceed. DESCRIPTION OF PROCEDURE: After written informed consent was obtained, the patient was brought to the EP lab where he was prepped and draped in the usual sterile fashion. Conscious sedation was initiated and maintained throughout the procedure by the anesthesiologist. Once sedation was verified, the right inguinal area was anesthetized with 2% Xylocaine. Using a modified Seldinger technique, the right femoral vein was cannulated on 4 occasions and 4 guidewires were advanced. Over the wires, three 5 and a 6-[place] Hemaquets were advanced. Then, under fluoroscopic guidance, through the 5 and 6 [place] Hemaquets, four 5 [place] Porfirio curved quadripolar electrophysiology catheters were advanced and placed at the His, right atrium, coronary sinus and right ventricle apex. Basic interval was measured. Entry was prolonged. Then, atrial pacing protocol was performed. Wenckebach of the node could not be reached. The patient had complete AV dissociation on and off. Then, ventricular pacing protocol was performed. During ventricular pacing protocol, ventricular tachycardia was induced. It was pace terminated. At that point, the procedure was complete. All catheters were removed. The patient tolerated the procedure. Blood loss was minimal. 1. ELECTROCARDIOGRAM: At baseline, the patient was in AV dissociation. Post procedure, the patient was in sinus rhythm, AV dissociation. 2. BASIC INTERVAL: Basic cycle length was around 790 milliseconds. AH was at 256 and HV at 88 milliseconds. 3. ATRIAL PACING PROTOCOL: Wenckebach was very high and could not be reached because the patient was in AV dissociation. 4. VENTRICULAR PACING PROTOCOL: Ventricular tachycardia was induced. It was pace terminated. CONCLUSION: 1. disease. 2. Ventricular tachyarrhythmia. RECOMMENDATIONS: The patient is going to be kept on the table for biventricular pacer defibrillator to be implanted for sudden prevention and resynchronization therapy. MD Patel Bello , 03:14 PM , 03:20 PM
--- NOTE | 2018-03-24 21:58 | ECG ---
Date Performed: 03/24/2018 Time Performed: 16:03:22 PTAGE: 87 years EKG: ELECTRONIC VENTRICULAR PACEMAKER ABNORMAL RHYTHM ECG PREVIOUS TRACING : 03/23/2018 06.23 DOCTOR: Aaron Kunz Interpretating Date/Time 03/24/2018 21:55:12
--- NOTE | 2018-03-24 22:32 | ECG ---
Date Performed: 03/23/2018 Time Performed: 06:23:28 PTAGE: 87 years EKG: Sinus rhythm LONG NC INTERVAL RIGHT BUNDLE BRANCH BLOCK LEFT ANTERIOR FASCICULAR BLOCK MODERATE T-WAVE ABNORMALIT Y, CONSIDER LATERAL ISCHEMIA ABNORMAL ECG PREVIOUS TRACING : 03/23/2018 00.12 DOCTOR: Aaron Kunz Interpretating Date/Time 03/24/2018 22:24:18
--- NOTE | 2018-03-24 22:35 | ECG ---
Date Performed: 03/23/2018 Time Performed: 00:12:43 PTAGE: 87 years EKG: Sinus rhythm LONG CO INTERVAL RIGHT BUNDLE BRANCH BLOCK LEFT ANTERIOR FASCICULAR BLOCK MODERATE T-WAVE ABNORMALIT Y, CONSIDER LATERAL ISCHEMIA ABNORMAL ECG PREVIOUS TRACING : 03/22/2018 17.03 DOCTOR: Aaron Kunz Interpretating Date/Time 03/24/2018 22:27:00
[2018-03-25] MEDS: ceFAZolin 2 GM Premix Inj 2 GM/100 ML BAG IV.SIG SCH ×2 (03:51→10:40)
[2018-03-25 04:47] LABS: Calcium 8.4 mg/dL (8.5-10.1); Carbon Dioxide 22.8 meq/L (21.0-32.0); Potassium 4.2 meq/L (3.5-5.1)
[2018-03-25 07:21] VITALS: BP 156/81; RESP 18; TEMP 97.4
[2018-03-25 07:56] VITALS: O2SAT 97
--- NOTE | 2018-03-25 08:41 | P.PNCA ---
Subjective Interval history: Patient seen and examined. No complaints. no chest pain, palpitations, dyspnea. Underwent primary REPLACER-D implantation yesterday, with EPS and successful VT testing with Dr Kunz. Physical Exam Vital signs: Vital Signs 03/24/18 09:00 03/24/18 09:03 03/24/18 10:00 Temperature Pulse Rate 78 58 L Respiratory Rate Blood Pressure Pulse Oximetry 94 L 03/24/18 10:39 03/24/18 11:00 03/24/18 11:35 Temperature 97.9 F Pulse Rate 58 L 42 L Respiratory Rate 24 Blood Pressure 126/75 Pulse Oximetry 95 95 03/24/18 15:35 03/24/18 15:45 03/24/18 16:00 Temperature 97.7 F Pulse Rate 70 70 70 Respiratory Rate 20 22 22 Blood Pressure 104/62 120/68 Pulse Oximetry 92 L 94 L 95 03/24/18 16:19 03/24/18 16:34 03/24/18 17:00 Temperature 97.7 F Pulse Rate 72 71 70 Respiratory Rate 24 22 Blood Pressure 119/63 127/68 Pulse Oximetry 94 L 96 03/24/18 17:04 03/24/18 17:37 03/24/18 18:00 Temperature Pulse Rate 71 68 Respiratory Rate 20 20 Blood Pressure 134/69 Pulse Oximetry 94 L 96 03/24/18 18:04 03/24/18 19:00 03/24/18 19:04 Temperature 98.4 F 98.4 F Pulse Rate 77 75 75 Respiratory Rate 20 16 16 Blood Pressure 115/70 103/58 L 103/58 L Pulse Oximetry 99 95 95 03/24/18 20:00 03/24/18 20:04 03/24/18 21:00 Temperature Pulse Rate 76 83 77 Respiratory Rate 16 Blood Pressure 113/68 Pulse Oximetry 95 95 03/24/18 21:04 03/24/18 21:13 03/24/18 21:56 Temperature Pulse Rate 77 80 Respiratory Rate 16 16 Blood Pressure 122/66 98/56 L Pulse Oximetry 95 95 95 03/24/18 22:00 03/24/18 22:54 03/24/18 23:00 Temperature 97.7 F Pulse Rate 72 71 80 Respiratory Rate 16 Blood Pressure 112/61 Pulse Oximetry 95 03/24/18 23:58 03/25/18 01:00 03/25/18 02:00 Temperature Pulse Rate 67 65 72 Respiratory Rate Blood Pressure Pulse Oximetry 03/25/18 03:00 03/25/18 03:59 03/25/18 05:00 Temperature 98 F Pulse Rate 80 70 61 Respiratory Rate 16 Blood Pressure 159/77 H Pulse Oximetry 95 03/25/18 05:50 03/25/18 07:00 03/25/18 07:18 Temperature 97.4 F L Pulse Rate 63 80 69 Respiratory Rate 18 Blood Pressure 156/81 H Pulse Oximetry 94 L 03/25/18 07:54 Temperature Pulse Rate Respiratory Rate Blood Pressure Pulse Oximetry 97 Intake & Output 03/24/18 03/25/18 03/25/18 18:59 06:59 18:59 Intake Total 2794 / 2794 440 / 440 Output Total 200 / 200 275 / 275 Balance 2594 / 2594 165 / 165 Weight 85.6 kg Intake: IV 1554 / 1554 200 / 200 Heparin/NS PF Inj 1,000 ML @ 0 510 / 510 mls/hr .ROUTE .[facility] Rx#: [id number] NS Inj 1,000 ML @ 84 mls/hr IV. 794 / 794 CONT .[id number] [facility] Rx#:[id number] Vancomycin Inj 1,000 MG In NS 250 / 250 Inj 250 ML @ 250 mls/hr IV.SIG CONTROL PANEL BUILDER [facility] Rx#:[id number] Ancef 2 GM Premix Inj 2 gm In 200 / 200 100 ml @ 200 mls/hr IV.SIG Q8H [facility] Rx#:[id number] Oral 240 / 240 240 / 240 Anesthesia Amount 1000 / 1000 Output: Urine 100 / 100 275 / 275 Estimated Blood Loss 100 / 100 Other: Date of Last Bowel Movement 03/23/18 03/23/18 03/23/18 Narrative: GENERAL: WN, WD elderly male resting in bed in NAD. SKIN: Warm and dry. HEENT: AT/NC. Pupils equal and round. MMM. NECK: Supple no tender LAD or JVD. HEART: RRR with harsh 3-4/6 OZZY. Left uper chest wall AICD dressing, CDI LUNGS: CTAB without wheezes or crackles. ABDOMEN: +BS, soft, NT, ND. EXTREMITIES: No LE edema. NEURO: Awake and alert. PSYCH: Appropriate mood and affect. Assessment and Plan - Plan Assessment: 87 yo M with CAD, CABG x 4 (2007), bioprosthetic AVR (2007), HTN, admitted with trifasicular block and AV dissociation along with new finding of Cardiomyopathy , EF <20% and severe bioprosthetic valve aortic stenosis. Echo 03/23/18 reveal severely dilated left ventricular hypertrophy with low flow low gradient severe (mean gradient 34mmHg, BAILEY 0.52cm), EF < 20% -High-grade AVB- now s/p Biotronik REPLACER-D 03/24/[address] Kunz. -Cardiomyopathy - EF < 20%. presumed ischemic. no ischemic workup required while inpatient currently. needs a [facility] as part of pre-TAVR workup which can be performed electively in outpatient setting in the near future. As part of guideline directed medical therapy will continue carvedilol 6.25mg BID, lisinopril 10mg and atorvastatin 10mg. continue asa. d/c planning for today. will need to establish with a student union consultant (patient does not have [facility] insurance) for management of elective TAVR and cardiomyopathy. Recommend Dr. Trupti Amaro for outpatient management.
[2018-03-25] MEDS: Lisinopril 10 MG Tablet PO SCH (08:44)
[2018-03-25] MEDS: Aspirin 325 MG Tablet PO SCH (08:44)
[2018-03-25] MEDS: Sod Chloride 0.9% Inj 1,000 ML IV.CONT SCH (08:45)
[2018-03-25] MEDS: Carvedilol 6.25 MG Tablet PO SCH (08:45)
[2018-03-25] MEDS: Heparin - SQ 10,000 UNITS/ML Vial SQ SCH (08:45)
[2018-03-25] MEDS: Spironolactone 25 MG Tablet PO SCH (08:45)
--- NOTE | 2018-03-25 08:59 | P.DS ---
Date of admission: 03/22/18 19:58 Primary care physician: pauline aponte Brief History from admission: With past medical history significant for hypertension and coronary artery disease presents the emergency department for the evaluation of an abnormal heart rhythm. The patient reports that last week he had his annual physical exam with his primary care provider in [place] and he had a routine EKG done at that time he states the PCP office called him today and dated that the EKG showed complete heart block and he needed to come to the emergency department for further evaluation. EKG done in the emergency department showed a bifascicular block without ST segment elevation or depression. The patient denies any chest pain or shortness of breath. He states he "feels fine." No abdominal pain. No nausea/vomiting/diarrhea. No lateralizing signs/symptoms. No fever/chills. Patient update on day of discharge: S/P pacer AICD placement yesterday. No pain. Denies CP, SOB, abdominal pain, N/ V. Feels well and is ready to go home. DS: Diagnosis - Discharge Diagnosis (1) AV block Status: Acute (2) Trifascicular block Status: Acute (3) Aortic stenosis Status: Acute (4) S/P placement of cardiac pacemaker Status: Acute DS: Medications - Discharge Medications Prescriptions: atorvastatin [Lipitor] 10 mg PO DAILY #30 tab carvedilol [Coreg] 6.25 mg PO BID #60 tab lisinopril 10 mg PO DAILY #30 tab spironolactone [Aldactone] 25 mg PO DAILY #30 tab DS: Summary Hospital Course: 87 year old male with history of HTN, CAD s/p CABG x 4, and SAVR admitted 03/22 for concern fo complete heart block seen on routine outpatient EKG. In the ER, he was noted to have an EKG revealing trifascicular block (RBBB, LAFB, first- degree AVB), and on telemetry he was noted to have intermittent Mobitz type II second-degree heart block. Cardiology was consulted and 2D echo was done demonstrating a severely dilated LV with mild concentric LVH, LV EF severely reduced at <20%, bioprosthetic aortic prosthesis with low-flow, low gradient severe , and moderate to severe pulmonary hypertension. Dr. Kunz was consulted and patient underwent placement of biventricular pacer and defibrillator on 03/24. He tolerated the procedure well. He was also advised to establish with a sleep scientist to discuss TAVR for his severe aortic stenosis combined with significantly reduced EF. He was maximized medically and started on Lisinopril, spironolactone, carvedilol, and a statin. He was continued on his aspirin. He was discharged in stable condition on 03/25. - Time Spent with Patient Total time spent providing and/or coordinating discharge services: Less than 30 minutes - Quality: VTE Deep Vein Thrombosis/Pulmonary Embolism Present on Admission: No Exam Vital signs: Vital Signs 03/24/18 09:00 03/24/18 09:03 03/24/18 10:00 Temperature Pulse Rate 78 58 L Respiratory Rate Blood Pressure Pulse Oximetry 94 L 03/24/18 10:39 03/24/18 11:00 03/24/18 11:35 Temperature 97.9 F Pulse Rate 58 L 42 L Respiratory Rate 24 Blood Pressure 126/75 Pulse Oximetry 95 95 03/24/18 15:35 03/24/18 15:45 03/24/18 16:00 Temperature 97.7 F Pulse Rate 70 70 70 Respiratory Rate 20 22 22 Blood Pressure 104/62 120/68 Pulse Oximetry 92 L 94 L 95 03/24/18 16:19 03/24/18 16:34 03/24/18 17:00 Temperature 97.7 F Pulse Rate 72 71 70 Respiratory Rate 24 22 Blood Pressure 119/63 127/68 Pulse Oximetry 94 L 96 03/24/18 17:04 03/24/18 17:37 03/24/18 18:00 Temperature Pulse Rate 71 68 Respiratory Rate 20 20 Blood Pressure 134/69 Pulse Oximetry 94 L 96 03/24/18 18:04 03/24/18 19:00 03/24/18 19:04 Temperature 98.4 F 98.4 F Pulse Rate 77 75 75 Respiratory Rate 20 16 16 Blood Pressure 115/70 103/58 L 103/58 L Pulse Oximetry 99 95 95 03/24/18 20:00 03/24/18 20:04 03/24/18 21:00 Temperature Pulse Rate 76 83 77 Respiratory Rate 16 Blood Pressure 113/68 Pulse Oximetry 95 95 03/24/18 21:04 03/24/18 21:13 03/24/18 21:56 Temperature Pulse Rate 77 80 Respiratory Rate 16 16 Blood Pressure 122/66 98/56 L Pulse Oximetry 95 95 95 03/24/18 22:00 03/24/18 22:54 03/24/18 23:00 Temperature 97.7 F Pulse Rate 72 71 80 Respiratory Rate 16 Blood Pressure 112/61 Pulse Oximetry 95 03/24/18 23:58 03/25/18 01:00 03/25/18 02:00 Temperature Pulse Rate 67 65 72 Respiratory Rate Blood Pressure Pulse Oximetry 03/25/18 03:00 03/25/18 03:59 03/25/18 05:00 Temperature 98 F Pulse Rate 80 70 61 Respiratory Rate 16 Blood Pressure 159/77 H Pulse Oximetry 95 03/25/18 05:50 03/25/18 07:00 03/25/18 07:18 Temperature 97.4 F L Pulse Rate 63 80 69 Respiratory Rate 18 Blood Pressure 156/81 H Pulse Oximetry 94 L 03/25/18 07:54 Temperature Pulse Rate Respiratory Rate Blood Pressure Pulse Oximetry 97 Intake & Output 03/24/18 03/25/18 03/25/18 18:59 06:59 18:59 Intake Total 2794 / 2794 440 / 440 Output Total 200 / 200 275 / 275 Balance 2594 / 2594 165 / 165 Weight 85.6 kg Intake: IV 1554 / 1554 200 / 200 Heparin/NS PF Inj 1,000 ML @ 0 510 / 510 mls/hr .ROUTE .[facility] Rx#: [id number] NS Inj 1,000 ML @ 84 mls/hr IV. 794 / 794 CONT .[id number] [facility] Rx#:[id number] Vancomycin Inj 1,000 MG In NS 250 / 250 Inj 250 ML @ 250 mls/hr IV.SIG CERTIFIED ENERGY MANAGER [facility] Rx#:[id number] Ancef 2 GM Premix Inj 2 gm In 200 / 200 100 ml @ 200 mls/hr IV.SIG Q8H [facility] Rx#:[id number] Oral 240 / 240 240 / 240 Anesthesia Amount 1000 / 1000 Output: Urine 100 / 100 275 / 275 Estimated Blood Loss 100 / 100 Other: Date of Last Bowel Movement 03/23/18 03/23/18 03/23/18 Narrative: GENERAL: WN, WD pleasant elderly sitting up in bed in NAD. SKIN: Warm and dry. HEENT: AT/NC. Pupils equal and round. MMM. NECK: Supple no tender LAD or JVD. HEART: RRR with harsh 3-4/6 OZZY. LUNGS: CTAB without wheezes or crackles. ABDOMEN: +BS, soft, NT, ND. EXTREMITIES: No LE edema. NEURO: Awake and alert. PSYCH: Appropriate mood and affect. Results Procedures completed during hospitalization: PPM/AICD placement 03/24 Completed studies during hospitalization: 2D echo 03/23: mild concentric LVH, LV EF severely reduced at <20%, bioprosthetic aortic prosthesis with low-flow, low gradient severe , and moderate to severe pulmonary hypertension Labs on day of discharge: Labs from last 24 hours 03/25/18 03:58 Sodium 139 Potassium 4.2 Chloride 105 Carbon Dioxide 22.8 Anion Gap 11 BUN 21 H Creatinine 1.08 Estimated GFR 65 L Random Glucose 113 H Calcium 8.4 L - Impressions ITS Impressions Chest X-Ray 03/24/18 00:00 CONCLUSION: Cardiomegaly without appreciable pulmonary vascular engorgement. Pulmonary vessels are limited in their evaluation due to breathing motion artifact. Discharge Plan - Discharge Disposition Patient Disposition: 01 Discharge Home - Discharge Condition Condition: Stable - Discharge Order Discharge Orders: Discharge Order (Routine); Ordered 03/25/18 Ordered By: Ifeoma Fowler - Discharge Details Anticipated Discharge Date: 03/25/18 - Physicians Team Attending Provider: Ifeoma Fowler Other Providers: Celestino Weiss DO
[2018-03-25 10:03] VITALS: PULSE 66
== END 2018-03-25 11:49 | disposition home or self-care (01) ==
LOC: NEDA 16:29 → NEPE 16:29 → NEDA 21:22 → NEPGCP 21:29 → HCIS 03-23 13:44 → HCPC 03-23 16:31
PROVIDERS: ADMIT Family Medicine; ATTEND Family Medicine